=== PATIENT | male | born 1935 | race Caucasian/White ===

== ENCOUNTER → 2017-05-27 08:05 | Day surgery (SDC) | payer MEDICARE, OTHER ==
[~2017-05-27 08:05] MED LIST: Buffered Lidocaine 0.9% SYRIN* 5 ML/SYR SYRINGE INTRADERM ONE; Buffered Lidocaine 0.9% SYRIN* 5 ML/SYR SYRINGE ONE; Famotidine IV* 10 MG/ML 2 ML (20 mg) IV ONE; Famotidine IV* 10 MG/ML 2 ML (20 mg) ONE; ceFAZolin 2 GM PREMIX (*) 50 ML IVPB ONE
[2017-05-27 08:38] VITALS: BP 171/81
== END | disposition home or self-care (01) ==
LOC: OR 08:05 → SP 08:05
PROVIDERS: ATTEND Neurological Surgery
DX: L03.114 Cellulitis of left upper limb (principal); Z53.8 Procedure and treatment not carried out for other reasons
CPT/HCPCS: J0690

== ENCOUNTER 2017-06-17 08:07 | Inpatient (IN) | payer MEDICARE, OTHER ==
[~2017-06-17 08:07] MED LIST changes: +Bacitracin IV* 50,000 UNITS INJ ONE; -Buffered Lidocaine 0.9% SYRIN* 5 ML/SYR SYRINGE ONE; -Famotidine IV* 10 MG/ML 2 ML (20 mg) IV ONE; -Famotidine IV* 10 MG/ML 2 ML (20 mg) ONE; +Lidocaine 1% MPF wEPI 200,000* 30 ML SDV ONE; +Sodium Citrate/Citric Acid* 15 ML UDC PO ONE; +Thrombin 5,000 UNITS* 1 APPLIC KIT - topical use - TOPICAL ONE; -ceFAZolin 2 GM PREMIX (*) 50 ML IVPB ONE
[2017-06-17] MEDS ORDERED: Buffered Lidocaine 0.9% SYRIN* 5 ML/SYR SYRINGE ONE (08:27)
[2017-06-17] MEDS ORDERED: Sodium Citrate/Citric Acid* 15 ML UDC ONE (08:27)
[2017-06-17] MEDS ORDERED: Clindamycin 900 MG IVPREMIX(* 900 MG/50 ML SDV IV ONE (08:27)
[2017-06-17] MEDS ORDERED: fentaNYL* 50 MCG/ML 2 ML VIAL (100 MCG VIAL) ONE ×2 (09:36→12:18)
[2017-06-17] MEDS ORDERED: Propofol* 10 MG/ML 20 ML BTL IV PUSH ONE (09:36)
[2017-06-17] MEDS ORDERED: Cisatracurium* 2 MG/ML MDV 5 ML ONE (09:36)
[2017-06-17] MEDS ORDERED: Lidocaine 2% PF * 5 ML VIAL ONE (09:36)
[2017-06-17] MEDS ORDERED: Ondansetron INJ* 2 MG/ML VIAL IV PRN ×2 (10:35→11:12)
[2017-06-17] MEDS ORDERED: fentaNYL* 50 MCG/ML 2 ML VIAL (100 MCG VIAL) IV PRN (10:35)
[2017-06-17] MEDS ORDERED: Thrombin 5,000 UNITS* 1 APPLIC KIT - topical use - TOPICAL ONE (10:51)
[2017-06-17] MEDS ORDERED: Neostigmine Methylsulfate* 2 MG/2 ML SYRINGE ONE (11:08)
[2017-06-17] MEDS ORDERED: Glycopyrrolate IV* 0.2 MG/ML 1 ML VIAL ONE (11:08)
[2017-06-17] MEDS ORDERED: HYDROcodone/ACETAMIN 5-325 MG* 1 TAB PO PRN (11:12)
[2017-06-17] MEDS ORDERED: Labetalol IV* 5 MG/ML 20 ML VIAL ONE (12:18)
--- NOTE | 2017-06-17 14:12 | RAD ---
INDICATION: Chronic back pain COMPARISON: None. TECHNIQUE: A single intraoperative crosstable lateral view was obtained. FINDINGS: A single crosstable lateral view depicts tissue retractors overlying the lumbar spine with a surgical device pointed at the L4/L5 intervertebral disc level. IMPRESSION: As above
[2017-06-17] MEDS: Labetalol IV* 5 MG/ML 20 ML VIAL IV PUSH ONE ×2 (17:52→19:35)
[2017-06-17] MEDS: Insulin LISPRO* 1 UNITS UNIT SUBCUT SCH ×2 (18:17→21:32)
[2017-06-17] MEDS: Cyanocobalamin TAB* 500 MCG PO SCH (18:17)
[2017-06-17] MEDS ORDERED: Lisinopril TAB* 5 MG PO ONE ×2 (19:03→23:00)
[2017-06-17] MEDS ORDERED: Metoprolol Succinate XL TAB* 25 MG PO ONE ×2 (19:03→23:00)
[2017-06-17] MEDS ORDERED: Labetalol IV* 5 MG/ML 20 ML VIAL IV PUSH PRN (19:11)
[2017-06-17] MEDS: Memantine TAB* 10 MG PO SCH (21:09)
[2017-06-17] MEDS: Acetaminophen TAB* 325 MG PO PRN (21:09)
[2017-06-18] MEDS: Levothyroxine TAB* 25 MCG TAB PO SCH (05:31)
[2017-06-18] MEDS: Acetaminophen TAB* 325 MG PO PRN ×2 (05:31→18:32)
--- NOTE | 2017-06-18 07:44 | PN ---
Progress Note - Progress Note Date of Service: 06/18/17 SOAP: Subjective: []Confused this AM No real pain complaints Moderate drain output Objective: []Neuro intact Confused slightly Drain output moderate Assessment: [] Slow post op progress Plan: []Will ask hospitalist to assist Will need further monitoring
[2017-06-18] MEDS ORDERED: FLUDROCORTISONE 0.1 MG PO SCH (09:00)
[2017-06-18] MEDS: Insulin LISPRO* 1 UNITS UNIT SUBCUT SCH ×4 (09:57→21:33)
[2017-06-18] MEDS: Memantine TAB* 10 MG PO SCH ×2 (09:59→21:32)
[2017-06-18] MEDS: Metoprolol Succinate XL TAB* 25 MG PO SCH (09:59)
[2017-06-18] MEDS: Lisinopril TAB* 5 MG PO SCH (09:59)
[2017-06-18] MEDS: Atorvastatin* 40 MG TAB PO SCH (09:59)
[2017-06-18] MEDS: Aspirin EC Low Dose* 81 MG TAB.EC PO SCH (09:59)
[2017-06-18] MEDS ORDERED: HYDROcodone/ACETAMIN 5-325 MG* 1 TAB PO PRN (11:39)
[2017-06-18 12:47] LABS: Hematocrit 36 % (42-52); Hemoglobin 12.4 g/dl (14.0-18.0); Mean Corpuscular HGB Conc 35 g/dl (31-36); Mean Corpuscular Hemoglobin 35 pg (27-31); Mean Corpuscular Volume 99 fL (80-94); Red Blood Count 3.61 10^6/ul (4.0-5.4); Red Cell Distribution Width 14 % (10.5-15); White Blood Count 8.9 10^3/ul (3.5-10.8)
[2017-06-18 12:54] LABS: Add Diff/Slide Review? Slide Review Added; Comments Flag Yes
[2017-06-18 13:01] LABS: BUN/Creatinine Ratio 18.8 (8-20); Calcium 8.8 mg/dL (8.6-10.3); EGFR African American 90.7 (>60); EGFR Non-African American 70.5 (>60); Magnesium 1.4 mg/dL (1.9-2.7); Potassium 3.2 mmol/L (3.5-5.0)
[2017-06-18 13:17] LABS: Mean Platelet Volume 9 um3 (7.4-10.4)
[2017-06-18] MEDS ORDERED: Potassium Chlor TAB* 20 MEQ TAB.ER PO ONE (14:41)
--- NOTE | 2017-06-18 15:16 | CONS ---
CC: Kristine Baptiste; Dr. Nobles * CONSULTATION REPORT: DATE OF CONSULT: 06/18/17 PRIMARY CARE PROVIDER: Kristine Baptiste. ATTENDING PHYSICIAN WHILE IN THE HOSPITAL: Rich Squires MD (report dictated by Sebastián Abdalla NP) REQUESTING PHYSICIAN FOR CONSULT: Dr. Nobles. REASON FOR MEDICAL CONSULTATION: 1. Evaluation of delirium postoperatively. 2. Medical management of comorbid medical conditions. HISTORY OF PRESENTING ILLNESS: Mr. Antony Montez is an 82-year-old male patient who has had chronic back issues for some time. He has been having lower back discomfort. He had been taking gabapentin and Celebrex for the pain for sometime, failing conservative therapy. He was getting epidural injections , which were causing elevated blood sugars for his diabetes. He sought care with Dr. Nobles, who has felt that he would benefit from an L4-5 and L5-S1 laminectomy, which he underwent yesterday. Initially doing well postoperatively , however, this morning was found to be confused and because of this we were asked to evaluate in consult. The patient does carry a history of diabetes, CAD , neuropathy, CHF, hypertension, hyperlipidemia. He has a history of syncope, BPH, arthritis, spinal stenosis, hypothyroidism, history of TIA, and a history of mild dementia. He was evaluated in the postoperative setting. He does state that he had some issue which he remembers being confused this morning. He denies having any chest pain or shortness of breath. He does states that his back pain is well controlled. He denies any numbness, tingling in the lower extremities. Denies any weakness. Denies having any abdominal discomfort. He denies feeling nauseated. He states he has not had any weakness to one side, no facial drooping, and his states that speech has been the same and actually she feels that his mentation is returning to his baseline. Because of the confusion this morning, his complex medical issue, we were asked to evaluate in consult. PAST MEDICAL HISTORY: Significant for, 1. Diabetes. 2. CAD. 3. Neuropathy. 4. CHF, which is combined diastolic and systolic, although the last EF was 55% preoperatively. He has a history of hypertension, hyperlipidemia, syncope, which was felt to be orthostatic. 5. BPH. 6. Arthritis. 7. Spinal stenosis. 8. Hypothyroidism. 9. TIA. 10. Dementia. PAST SURGICAL HISTORY: 1. He had an appendectomy. 2. Cataract extraction. 3. Bilateral total knee replacement. 4. Right rotator cuff repair. 5. He has had laminectomy done yesterday at L4-L5, L5-S1 with Dr. Nobles. HOME MEDICATIONS: According to the list that was provided include, 1. Celebrex 100 mg p.o. b.i.d. 2. Multivitamin 1 tablet p.o. q.p.m. 3. Toprol XL 25 mg daily. 4. Metformin 750 mg p.o. b.i.d. 5. Namenda 10 mg p.o. b.i.d. 6. Lisinopril 2.5 mg daily. 7. Synthroid 25 mcg daily. 8. Ipratropium bromide 2 sprays both nares b.i.d. as needed. 9. Florinef 1 tablet p.o. daily. 10. B12 500 mcg p.o. daily. 11. Lipitor 40 mg daily. 12. Aspirin 81 mg daily. 13. Tylenol extra strength 500 mg p.o. b.i.d. ALLERGIES TO MEDICATIONS: NEOSPORIN and ARICEPT. FAMILY HISTORY: Mother had a history of dementia as did his father and his father had a history of CHF. SOCIAL HISTORY: He is a former smoker. He quit over 30 years ago. He does not drink alcohol. His surrogate decision maker is his . REVIEW OF SYSTEMS: There is no documented fever. He denied having any significant weight change. There is no double vision. There is no ear discharge. He denies having any rhinorrhea. No sore throat. No thyroid enlargement. Denies having any chest pain. There is no orthopnea or nocturnal dyspnea. There is no abdominal pain. No nausea, no vomiting. No dysuria, no frequency. There is no seizure, no loss of consciousness. No pruritus and no skin ulceration. Review of 14 systems completed, all others negative. PHYSICAL EXAM: Reveals vital signs, blood pressure 134/60 with the pulse of 50 , respirations 16, his O2 sat 96%, and temperature was 98.4. General: At this time, Mr. Montez is an 82-year-old male patient. He is sitting in the hospital bed. He does not appear to be in any acute distress. He is awake and he is alert. He is well nourished, well developed. HEENT: Head is atraumatic. Eyes: Sclerae anicteric, not pale. Neck: Supple. Throat: Oral mucosa appears to be moist. No oropharyngeal erythema. Heart: Sounds S1 and S2. Regular rate and rhythm. No murmurs, rubs or gallops. Lungs: Clear to auscultation bilaterally. No wheezes, rales or rhonchi. Abdomen: Soft, flat, nontender. Bowel sounds were present. Extremities: Pulses were 2+ throughout. He has 5/5 strength in all 4 extremities. No peripheral edema. Neurologic: He is awake, he is alert. He does have a little trouble with time. He actually looked at the calendar and said it was June, but he knows he is in the hospital. He knows that he had surgery. He knows Dr. Nobles performed the surgery. Speech is clear. His tongue is midline. Deputy Assessor are equal. Finger -to-nose intact bilaterally. [id number] intact bilaterally. No gross focal deficits. Cranial nerves II through XII are intact. Skin: Intact midline incision to his lumbar spine, which was covered with an ABD. It is clean, dry and intact. DIAGNOSTIC STUDIES/LAB DATA: Preoperatively, WBC 7.9, RBC of 3.90, hemoglobin 13.4, hematocrit 39, platelet count 188. Sodium 140, potassium 3.9, chloride 103, bicarb 30, BUN 18, creatinine 0.91. He had a preop evaluation well with his primary. He has a nuclear stress that was done in 2015, which showed a moderate size fixed defect involving the basal, mid and apical inferior and basal inferior lateral camara and he had an echo in 2015, EF of 55%. Old medical records were reviewed. ASSESSMENT AND PLAN: Mr. Montez is an 82-year-old male patient, coming into neurosurgical services for an elective laminectomy. Postoperatively, he was noted to have some confusion. We were asked to evaluate in consult. Our recommendations at this point are: 1. Lumbar stenosis, status post L4-5, L5-S1 laminectomy, defer the management to Dr. Nobles and his team. 2. Diabetes. I would recommend continuing the sliding scale. 3. Dementia with postoperative delirium and I suspect that the patient is experiencing postoperative delirium, which should be self-limiting, however, I will check a CBC, BMP and UA to make sure there is not any other underlying cause. Should he worsen again, I would consider getting CT imaging of his brain , but this is quite nonfocal, he seems to be returning to his baseline, I will monitor and I will try to avoid narcotics. I have cut back his [place] from 2 tablets every 4 hours to 1 tablet every 6 hours and I have encouraged him to take Tylenol only if this is controlling his pain and to avoid agents that would again cause confusion. 4. Coronary artery disease, continue his beta-kike, statin and aspirin. 5. Neuropathy, continue meds prescribed. 6. History of congestive heart failure, we will follow this. He does not appear to be in failure currently. 7. Hypertension, immediately postoperatively he was rather hypertensive in 170s to 180s. He was restarted on his meds, his blood pressure today are in the 130s. 8. History of syncope. I would recommend continuing his Florinef as he does have orthostatic hypotension. This may raise his blood pressure, and we will follow it. 9. Benign prostatic hypertrophy. Continue his meds as prescribed. 10. Arthritis, he can follow up with his primary. 11. Hypothyroidism. Continue Synthroid. 12. History of transient ischemic attack. Continue with secondary prevention with aspirin and statin. 13. DVT prophylaxis, as per the primary team. 14. Code status. He wished to be a full code. 15. Fluids, electrolytes and nutrition. I would recommend a consistent carb diet. TIME SPENT: Time spent on consult 60 minutes, greater than half the time spent [id number] with the patient obtaining my history and physical, the other half the time spent going over the plan of care with the patient and implementing the plan of care. I did discuss this plan of care with my attending, Dr. Squires; she is in agreement. SEBASTIÁN ABDALLA, RAMILA [id number]/[facility] #: [id number] YFN
[2017-06-18 17:10] LABS: Urine Bilirubin Negative (Negative); Urine Glucose Negative (Negative); Urine Nitrite Negative (Negative)
[2017-06-18] MEDS: Cyanocobalamin TAB* 500 MCG PO SCH (18:32)
--- NOTE | 2017-06-18 23:31 | OP ---
DATE OF OPERATION: 06/17/17 - ROOM #337 DATE OF : 33 SURGEON: Chente Nobles MD. EXCEPTIONAL CHILDREN'S TEACHER: JUAN A Moore. ANESTHESIOLOGIST: Scout Cuevas DO ANESTHESIA: General. PRE-OP DIAGNOSIS: Lumbar spinal stenosis at L4-5, L5-S1. POST-OP DIAGNOSIS: Lumbar spinal stenosis at L4-5, L5-S1. OPERATIVE PROCEDURE: Decompressive lumbar laminectomy, L4-5, L5-S1. DESCRIPTION OF PROCEDURE: After satisfactory general anesthesia was obtained, the patient was placed on the operating table in a prone position with the chest supported on the Nakul frame, the back slightly flexed. The lumbar region was then clipped, prepped, and draped in a sterile manner for lumbar laminectomy, and the skin incision outlined from L4 to the sacrum. This incision was infiltrated with 1% Xylocaine with epinephrine, after which it was turned down sharply to the level of the lumbar fascia. The fascia was divided along the spinous processes from L4 to the sacrum, and the paraspinal musculature was stripped away from these posterior elements using the periosteal elevator and monopolar cautery. An intraoperative x-ray was obtained verifying proper interspace localization, after which a decompression was initially carried out at the L4-5 level by removing the spinous processes of L4 and L5 with a combination of the Natalie data transcriber and Le[place]ell rongeur. The inferior aspect of the L4 lamina and medial aspect of the facet complex was then thinned out with Midas Eleazar drill and a Kerrison was used to perform a decompression. This was carried superiorly until the attachment of the ligamentum flavum was taken down. The pathology at this level was noted to be marked ligamentum thickening as well as bony facet hypertrophy. The dissection and decompression was carried inferiorly until the L5 nerve roots were noted to be free in their course and there was no longer dural compromise. Attention was then directed to the L5-S1 level where similar findings were noted. The changes at the L5-S1 level were not as severe as L4-5. At the conclusion of the L5-S1 decompression, both S1 nerve roots were noted to be free in their course. Hemostasis was obtained with temporary Gelfoam and after assuring adequate hemostasis, Gelfoam was placed over the laminectomy defects. A Baltazar drain was then placed in the epidural space and tunneled out toward the left side. The fascia was then reapproximated with 0 Vicryl suture, the subcutaneous tissue was closed with 3-0 Vicryl suture, and the skin closed with skin clips. The estimated blood loss was 100 cc, and the final sponge, padding , and needle counts were correct. The patient was taken to the recovery room, extubated, and in stable condition. [id number]/[facility] #: [id number] MTDD
[2017-06-19] MEDS: Acetaminophen TAB* 325 MG PO PRN (01:51)
[2017-06-19] MEDS: Levothyroxine TAB* 25 MCG TAB PO SCH (06:22)
--- NOTE | 2017-06-19 08:54 | PN ---
Progress Note - Progress Note Date of Service: 06/19/17 SOAP: Subjective: [S/p decompressive lumbar laminectomy L4-5, L5-S1, POD#2. Patient feeling well this morning and ambulating the payan with PT, using walker. Pain well controlled, no narcotics. Confusion is improving although had episode of disorientation last night. ] Objective: [Vital Signs: Temp Pulse Resp BP Pulse Ox 98.4 F 67 20 147/67 100 06/19/17 07:49 06/19/17 07:49 06/19/17 08:00 06/19/17 07:49 06/19/17 07:49 General: Alert and oriented to person and place. Neuro: Motor and sensory intact. Extremities: Full ROM Incision: Intact with gabbie. Baltazar drain in place. Baltazar drain output 06/17/17 06/17/17 06/17/17 11:25 14:41 19:00 Output, NAVIN #1 30 60 80 06/18/17 06/18/17 06/18/17 00:31 03:04 07:00 Output, NAVIN #1 50 30 40 06/18/17 06/18/17 06/18/17 14:00 19:06 21:54 Output, NAVIN #1 30 30 15 06/18/17 06/19/17 06/19/17 23:28 03:38 08:51 Output, NAVIN #1 10 15 15 ] Assessment: [Satisfactory post-op course. Mild confusion, possibly related to anesthesia.] Plan: [1. Continue to work with PT. 2. Discussed close safety monitoring with nursing staff concerning the patient' s confusion. 3. Possible discharge home tomorrow.]
[2017-06-19] MEDS: Aspirin EC Low Dose* 81 MG TAB.EC PO SCH (09:11)
[2017-06-19] MEDS: Atorvastatin* 40 MG TAB PO SCH (09:11)
[2017-06-19] MEDS: Metoprolol Succinate XL TAB* 25 MG PO SCH (09:11)
[2017-06-19] MEDS: Fludrocortisone Acetate TAB* 0.1 MG PO SCH (09:11)
[2017-06-19] MEDS: Lisinopril TAB* 5 MG PO SCH (09:11)
[2017-06-19] MEDS: Memantine TAB* 10 MG PO SCH ×2 (09:11→21:20)
[2017-06-19] MEDS: Insulin LISPRO* 1 UNITS UNIT SUBCUT SCH ×4 (09:12→21:20)
--- NOTE | 2017-06-19 09:36 | PN ---
Subjective Date of Service: 06/19/17 Interval History: Patient seen and examined at bedside. Patient had some confusion overnight but this morning is cooperative and oriented. Patient denies pain and ambulated in hallway with PT. Family History: Unchanged from Admission Social History: Unchanged from Admission Past Medical History: Unchanged from Admission Objective Active Medications: Acetaminophen (Tylenol Tab*) 650 mg PO Q4H PRN Hydrocodone Bitart/Acetaminophen ([place] 5-325 Tab*) 1 tab PO Q6H PRN Aspirin (Aspirin Ec Low Dose*) 81 mg PO QAM [facility]ER[facility] Atorvastatin Calcium (Lipitor*) 40 mg PO QAM [facility]ERA Cyanocobalamin (Vitamin B12 Tab*) 500 mcg PO QPM [facility]ERA Fludrocortisone Acetate (Florinef Tab*) 0.1 mg PO QAM SAMEERA Hydralazine HCl (Apresoline Iv*) 10 mg IV SLOW PU Q4H PRN Lactated Ringer's (Lactated Ringers 1000 Ml Bag*) 1,000 mls @ 75 mls/hr IV PER RATE [facility] Insulin Human Lispro (Humalog*) 0 units SUBCUT ACHS SAMEERA Labetalol HCl (Trandate Iv*) 20 mg IV PUSH Q4H PRN Levothyroxine Sodium (Synthroid Tab*) 25 mcg PO DAILY@0600 [facility]ER[facility] Lisinopril (Prinivil Tab*) 2.5 mg PO QAM SAMEERA Memantine (Namenda Tab*) 10 mg PO BID SAMEERA Metoprolol Succinate (Toprol Xl Tab*) 25 mg PO QAM SAMEERA Ondansetron HCl (Zofran Inj*) 4 mg IV Q6H PRN 06/19/17 06/19/17 06/19/17 03:33 07:49 08:00 Temperature 98.8 F 98.4 F Pulse Rate 67 67 Respiratory 16 16 20 Rate Blood Pressure 125/61 147/67 (mmHg) O2 Sat by Pulse 98 100 Oximetry Appearance: sitting up in bed, NAD Eyes: No Scleral Icterus, PERRLA Ears/Nose/Mouth/Throat: NL Teeth, Lips, Gums Neck: NL Appearance and Movements; NL JVP Respiratory: Symmetrical Chest Expansion and Respiratory Effort, Clear to Auscultation Cardiovascular: NL Sounds; No Murmurs; No JVD, RRR Abdominal: NL Sounds; No Tenderness; No Distention Extremities: No Edema Skin: - - incision on back C/D/I Neurological: NL Muscle Strength and Tone, - - oriented to self and place. Result Diagrams: 06/18/17 12:26 06/18/17 12:26 Assess/Plan/Problems-Billing Patient is an 82 y/o M w/ PMH of CAD, DM, CHF, HTN, HLD, neuropathy who underwent an elective laminectomy on 06/17/2017. Hospitalists were consulted for post-operative delirium. - Patient Problems (1) Postoperative delirium Comment: Most likely secondary to anesthesia, narcotics and underlying dementia. Continue to use Tylenol for pain. WBC normal and UA negative. Continue frequent reorientation as needed. (2) S/P laminectomy Comment: Management per neurosurgery. PT/OT. Pain control with Tylenol and [place] sparingly. (3) CAD (coronary artery disease) Comment: Continue beta-kike, statin and ASA. (4) HTN (hypertension) Comment: Controlled. Continue Lisinopril and Florinef for Orthostatic hypotnesion. (5) Diabetes Comment: Sugars controlled with Lispro sliding scale. (6) HLD (hyperlipidemia) Comment: Continue statin. (7) DVT prophylaxis Comment: SCDs only. (8) Full code status Status and Disposition: Inpatient s/p lumbar laminectomy. Dispo per Neurosurgery.
[2017-06-19] MEDS: Potassium Chlor TAB* 20 MEQ TAB.ER PO SCH ×2 (10:28→14:41)
[2017-06-19] MEDS: Polyethylene Glycol 3350* 17 GM PACKET PO SCH (14:41)
[2017-06-19] MEDS: Cyanocobalamin TAB* 500 MCG PO SCH (18:22)
[2017-06-19] MEDS: Docusate CAP* 100 MG PO SCH (21:20)
[2017-06-19] MEDS: Senna TAB PO SCH (21:20)
[2017-06-19] MEDS: hydrALAZINE IV* 20 MG/ML VIAL IV SLOW PU PRN (22:31)
[2017-06-20] MEDS: Levothyroxine TAB* 25 MCG TAB PO SCH (05:29)
[2017-06-20] MEDS: Acetaminophen TAB* 325 MG PO PRN ×2 (06:53→18:33)
[2017-06-20 07:32] LABS: BUN/Creatinine Ratio 22.7 (8-20); Calcium 8.9 mg/dL (8.6-10.3); EGFR African American 106.4 (>60); EGFR Non-African American 82.7 (>60); Potassium 3.6 mmol/L (3.5-5.0)
--- NOTE | 2017-06-20 07:44 | PN ---
Progress Note - Progress Note Date of Service: 06/20/17 SOAP: Subjective: []POD # 3 Remains confused No complaints of pain Still with significant drain output Objective: []30 cc out of drain this AM Neuro intact Remains confused Assessment: []Very poor progress Plan: []Will check CT of brain May benefit from rehab
--- NOTE | 2017-06-20 08:37 | PN ---
Subjective Date of Service: 06/20/17 Interval History: Patient seen and examined at bedside. Patient with continued agitation and confusion overnight. Patient getting out of bed and ambulating. Family History: Unchanged from Admission Social History: Unchanged from Admission Past Medical History: Unchanged from Admission Objective Active Medications: Acetaminophen (Tylenol Tab*) 650 mg PO Q4H PRN Hydrocodone Bitart/Acetaminophen (Monitor 5-325 Tab*) 1 tab PO Q6H PRN Aspirin (Aspirin Ec Low Dose*) 81 mg PO QAM [facility] Atorvastatin Calcium (Lipitor*) 40 mg PO QAM SAMEERA Cyanocobalamin (Vitamin B12 Tab*) 500 mcg PO QPM SAMEERA Docusate Sodium (Colace Cap*) 100 mg PO BID SAMEERA Fludrocortisone Acetate (Florinef Tab*) 0.1 mg PO QAM SAMEERA Hydralazine HCl (Apresoline Iv*) 10 mg IV SLOW PU Q4H PRN Lactated Ringer's (Lactated Ringers 1000 Ml Bag*) 1,000 mls @ 75 mls/hr IV PER RATE [facility] Insulin Human Lispro (Humalog*) 0 units SUBCUT ACHS SAMEERA Labetalol HCl (Trandate Iv*) 20 mg IV PUSH Q4H PRN Levothyroxine Sodium (Synthroid Tab*) 25 mcg PO DAILY@0600 [facility] Lisinopril (Prinivil Tab*) 2.5 mg PO QAM [facility] Memantine (Namenda Tab*) 10 mg PO BID [facility] Metoprolol Succinate (Toprol Xl Tab*) 25 mg PO QAM [facility] Ondansetron HCl (Zofran Inj*) 4 mg IV Q6H PRN Polyethylene Glycol/Electrolytes (Miralax*) 17 gm PO DAILY [facility] Senna (Senokot Tab*) 2 tab PO BEDTIME [facility] 06/20/17 06/20/17 07:32 08:22 Temperature 98.5 F Pulse Rate 71 Respiratory 17 Rate Blood Pressure 158/75 (mmHg) O2 Sat by Pulse 98 98 Oximetry Oxygen Devices in Use Now: None Appearance: sitting up bed, NAD Eyes: No Scleral Icterus, PERRLA Ears/Nose/Mouth/Throat: NL Teeth, Lips, Gums Neck: NL Appearance and Movements; NL JVP Respiratory: Symmetrical Chest Expansion and Respiratory Effort, Clear to Auscultation Cardiovascular: NL Sounds; No Murmurs; No JVD, RRR Abdominal: NL Sounds; No Tenderness; No Distention Extremities: No Edema Skin: No Rash or Ulcers, - - NAVIN still in place; back dressing C/D/I Neurological: NL Muscle Strength and Tone, - - AO to self and place Result Diagrams: 06/18/17 12:26 06/20/17 06:41 Microbiology and Other Data: Microbiology 06/18/17 16:50 Urine Culture - Final Urine No Growth (<1,000 CFU/mL) Assess/Plan/Problems-Billing Patient is an 82 y/o M w/ PMH of CAD, DM, CHF, HTN, HLD, neuropathy who underwent an elective laminectomy on 06/17/2017. Hospitalists were consulted for post-operative delirium. - Patient Problems (1) Postoperative delirium Comment: Most likely secondary to anesthesia, narcotics and underlying dementia. Agitation seems to be worse at night. Would try low dose seroquel to help with delirium at night. CT head pending. (2) S/P laminectomy Comment: Management per neurosurgery. PT/OT. Pain control with Tylenol and Monitor sparingly. (3) CAD (coronary artery disease) Comment: Continue beta-kike, statin and ASA. (4) HTN (hypertension) Comment: Controlled. Continue Lisinopril and Florinef for Orthostatic hypotnesion. (5) Diabetes Comment: Sugars controlled with Lispro sliding scale. (6) HLD (hyperlipidemia) Comment: Continue statin. (7) DVT prophylaxis Comment: SCDs only. (8) Full code status Status and Disposition: Inpatient s/p lumbar laminectomy. Dispo per Neurosurgery.
--- NOTE | 2017-06-20 09:19 | RAD ---
Indication: Confusion. Postop from back surgery. Comparison: No relevant prior exams available on the [facility] PACS for comparison. Technique: Noncontrast CT vertex of skull through foramen magnum. Report: Mild prominence of the cerebral sulci and ventricles. Normal variant persistent cavum septum pellucidum. Negative for euceda matter white matter obscuration, intra or extra-axial hemorrhage, or mass effect. Decreased density in the periventricular and subcortical white matter while non-specific is most likely due to chronic microangiopathy. Atherosclerotic calcification at the intracranial internal carotid arteries and distal vertebral arteries. Unremarkable orbital contents. No suspicious calvarial or skull base lesion evident. Clear visualized paranasal sinuses and mastoid air spaces. Unremarkable scalp. IMPRESSION: 1. No acute intracranial process evident. 2. Mild atrophy and stigmata of chronic small vessel ischemic disease.
[2017-06-20] MEDS: Polyethylene Glycol 3350* 17 GM PACKET PO SCH (10:05)
[2017-06-20] MEDS: Docusate CAP* 100 MG PO SCH ×2 (10:06→19:33)
[2017-06-20] MEDS: Atorvastatin* 40 MG TAB PO SCH (10:06)
[2017-06-20] MEDS: Fludrocortisone Acetate TAB* 0.1 MG PO SCH (10:06)
[2017-06-20] MEDS: Lisinopril TAB* 5 MG PO SCH (10:07)
[2017-06-20] MEDS: Memantine TAB* 10 MG PO SCH ×2 (10:07→19:33)
[2017-06-20] MEDS: Aspirin EC Low Dose* 81 MG TAB.EC PO SCH (10:07)
[2017-06-20] MEDS: Metoprolol Succinate XL TAB* 25 MG PO SCH (10:07)
[2017-06-20] MEDS: Insulin LISPRO* 1 UNITS UNIT SUBCUT SCH (10:08)
[2017-06-20] MEDS: Cyanocobalamin TAB* 500 MCG PO SCH (18:33)
[2017-06-20] MEDS: Senna TAB PO SCH (19:33)
[2017-06-20] MEDS: QUEtiapine TAB* 25 MG PO SCH (19:34)
[2017-06-20] MEDS: hydrALAZINE IV* 20 MG/ML VIAL IV SLOW PU PRN (23:51)
[2017-06-21] MEDS: Levothyroxine TAB* 25 MCG TAB PO SCH (06:34)
[2017-06-21] MEDS: Polyethylene Glycol 3350* 17 GM PACKET PO SCH (10:32)
[2017-06-21] MEDS: Atorvastatin* 40 MG TAB PO SCH (10:33)
[2017-06-21] MEDS: Docusate CAP* 100 MG PO SCH ×2 (10:33→19:48)
[2017-06-21] MEDS: Memantine TAB* 10 MG PO SCH ×2 (10:33→19:48)
[2017-06-21] MEDS: Metoprolol Succinate XL TAB* 25 MG PO SCH (10:34)
[2017-06-21] MEDS: Aspirin EC Low Dose* 81 MG TAB.EC PO SCH (10:34)
[2017-06-21] MEDS: Lisinopril TAB* 5 MG PO SCH (10:34)
[2017-06-21] MEDS: Fludrocortisone Acetate TAB* 0.1 MG PO SCH (10:35)
[2017-06-21] MEDS: Acetaminophen TAB* 325 MG PO PRN (10:35)
[2017-06-21] MEDS: Insulin LISPRO* 1 UNITS UNIT SUBCUT SCH (10:36)
--- NOTE | 2017-06-21 13:09 | PN ---
Subjective Date of Service: 06/21/17 Interval History: Seen and examined with daughter at bedside Discussed events with nurses Agitated and confused before bedtime yesterday but much less so compared to night prior Took seroquel and had improved sleep No complaints today Drain out today by Dr. Nobles Family History: Unchanged from Admission Social History: Unchanged from Admission Past Medical History: Unchanged from Admission Objective Active Medications: Acetaminophen (Tylenol Tab*) 650 mg PO Q4H PRN PRN Reason: PAIN Last Admin: 06/21/17 10:35 Dose: 650 mg Hydrocodone Bitart/Acetaminophen ([place] 5-325 Tab*) 1 tab PO Q6H PRN PRN Reason: MARKED PAIN Aspirin (A[facility]in Ec Low Dose*) [facility] Last Admin: 06/21/17 10:34 Dose: 81 mg Atorvastatin Calcium (Lipitor*) 40 mg PO QAM [facility] Last Admin: 06/21/17 10:33 Dose: 40 mg Cyanocobalamin (Vitamin B12 Tab*) 500 mcg PO QPM [facility] Last Admin: 06/20/17 18:33 Dose: 500 mcg Docusate Sodium (Colace Cap*) 100 mg PO BID [facility] Last Admin: 06/21/17 10:33 Dose: 100 mg Fludrocortisone Acetate (Florinef Tab*) 0.[facility] [place] Last Admin: 06/21/17 10:35 Dose: 0.1 mg Hydralazine HCl (Apresoline Iv*) 10 mg IV SLOW PU Q4H PRN PRN Reason: BLOOD PRESSURE Last Admin: 06/20/17 23:51 Dose: 10 mg Insulin Human Lispro (Humalog*) 0 units SUBCUT DAILY [facility] PRN Reason: Protocol Last Admin: 06/21/17 10:36 Dose: 1 unit Labetalol HCl (Trandate Iv*) 20 mg IV PUSH Q4H PRN PRN Reason: BLOOD PRESSURE Levothyroxine Sodium (Synthroid Tab*) 25 mcg PO DAILY@0600 [facility] Last Admin: 06/21/17 06:34 Dose: 25 mcg Lisinopril (Prinivil Tab*) 2.5 mg PO QAM [facility] Last Admin: 06/21/17 10:34 Dose: 2.5 mg Memantine (Namenda Tab*) 10 mg PO BID [facility] Last Admin: 06/21/17 10:33 Dose: 10 mg Metoprolol Succinate (Toprol Xl Tab*) 25 mg PO QAM [facility] Last Admin: 06/21/17 10:34 Dose: 25 mg Ondansetron HCl (Zofran Inj*) 4 mg IV Q6H PRN PRN Reason: NAUSEA/VOMITING Polyethylene Glycol/Electrolytes (Miralax*) 17 gm PO DAILY [facility] Last Admin: 06/21/17 10:32 Dose: 17 gm Quetiapine Fumarate (Seroquel Tab*) 12.5 mg PO BEDTIME [facility] Last Admin: 06/20/17 19:34 Dose: 12.5 mg Senna (Senokot Tab*) 2 tab PO BEDTIME [facility] Last Admin: 06/20/17 19:33 Dose: 2 tab Vital Signs 06/20/17 06/20/17 06/20/17 15:33 19:58 20:00 Temperature 97.9 F 97.9 F Pulse Rate 75 64 Respiratory 16 20 16 Rate Blood Pressure 136/69 176/81 (mmHg) O2 Sat by Pulse 99 99 Oximetry 06/21/17 07:31 Temperature 98.4 F Pulse Rate 78 Respiratory 16 Rate Blood Pressure 148/70 (mmHg) O2 Sat by Pulse 96 Oximetry Oxygen Devices in Use Now: None Appearance: sitting in chair, NAD Eyes: No Scleral Icterus, PERRLA Ears/Nose/Mouth/Throat: NL Teeth, Lips, Gums, Clear Oropharnyx, Mucous Membranes Moist Neck: NL Appearance and Movements; NL JVP Respiratory: Symmetrical Chest Expansion and Respiratory Effort, Clear to Auscultation Cardiovascular: RRR Abdominal: NL Sounds; No Tenderness; No Distention, No Hepatosplenomegaly Extremities: No Edema Skin: No Rash or Ulcers Neurological: Alert and Oriented x 3, - - cn2-12 intact Result Diagrams: 06/18/17 12:26 06/20/17 06:41 Microbiology and Other Data: Microbiology 06/18/17 16:50 Urine Culture - Final Urine No Growth (<1,000 CFU/mL) Assess/Plan/Problems-Billing Patient is an 82 y/o M w/ PMH of CAD, DM, CHF, HTN, HLD, neuropathy who underwent an elective laminectomy on 06/17/2017. Hospitalists were consulted for post-operative delirium. - Patient Problems (1) Postoperative delirium Comment: Improved with time and low dose seroquel Would not discharge with continued seroquel (2) S/P laminectomy Comment: Management per neurosurgery. PT/OT. Pain control with Tylenol and [place] sparingly. (3) CAD (coronary artery disease) Comment: Continue beta-kike, statin and ASA. (4) Diabetes Comment: Sugars controlled with Lispro sliding scale. (5) HTN (hypertension) Comment: Controlled. Continue Lisinopril Florinef for Orthostatic hypotension. (6) DVT prophylaxis Comment: SCDs only. Status and Disposition: Will sign off Please call with additional questions [phone]
--- NOTE | 2017-06-21 16:43 | PN ---
Progress Note - Progress Note Date of Service: 06/21/17 SOAP: Subjective: []POD # 4 Better this AM Much more oriented,sitting up in chair Drainage decreased Objective: []Drain removed Neuro intact Oriented today with family in attendance Assessment: []Slowly improving Plan: []Ready for rehab when bed available
[2017-06-21] MEDS: Cyanocobalamin TAB* 500 MCG PO SCH (18:12)
[2017-06-21] MEDS: Senna TAB PO SCH (19:48)
[2017-06-21] MEDS: QUEtiapine TAB* 25 MG PO SCH (19:49)
[2017-06-22] MEDS: Levothyroxine TAB* 25 MCG TAB PO SCH (05:56)
[2017-06-22] MEDS: Insulin LISPRO* 1 UNITS UNIT SUBCUT SCH (09:20)
[2017-06-22] MEDS: Docusate CAP* 100 MG PO SCH ×2 (09:20→21:16)
[2017-06-22] MEDS: Acetaminophen TAB* 325 MG PO PRN (09:20)
[2017-06-22] MEDS: Fludrocortisone Acetate TAB* 0.1 MG PO SCH (09:20)
[2017-06-22] MEDS: Lisinopril TAB* 5 MG PO SCH (09:20)
[2017-06-22] MEDS: Atorvastatin* 40 MG TAB PO SCH (09:20)
[2017-06-22] MEDS: Polyethylene Glycol 3350* 17 GM PACKET PO SCH (09:20)
[2017-06-22] MEDS: Aspirin EC Low Dose* 81 MG TAB.EC PO SCH (09:20)
[2017-06-22] MEDS: Memantine TAB* 10 MG PO SCH ×2 (09:20→21:16)
[2017-06-22] MEDS: Metoprolol Succinate XL TAB* 25 MG PO SCH (09:20)
[2017-06-22] MEDS: Cyanocobalamin TAB* 500 MCG PO SCH (18:33)
[2017-06-22] MEDS: Senna TAB PO SCH (21:15)
[2017-06-22] MEDS: QUEtiapine TAB* 25 MG PO SCH (21:16)
[2017-06-23] MEDS: Levothyroxine TAB* 25 MCG TAB PO SCH (05:31)
--- NOTE | 2017-06-23 08:05 | PN ---
Progress Note - Progress Note Date of Service: 06/23/17 SOAP: Subjective: [S/p decompressive lumbar laminectomy L4-5 and L5-S1, POD #6. Feeling well this morning; denies headache, nausea and fever. He has been working with PT for ambulation and mobility, uses walker. He reports episodes of confusion throughout this admission. Denies low back and lower extremity pain. ] Objective: [ Vital Signs: Temp Pulse Resp BP Pulse Ox 99.5 F 65 16 139/67 99 06/22/17 20:45 06/22/17 20:45 06/22/17 20:45 06/22/17 20:45 06/22/17 20:45 General: Alert and oriented to person and place. Neuro: Motor and sensory intact. Extremities: Full ROM. Incision: Intact with gabbie, no infection. ] Assessment: [He is making slow progress post-operatively. Confusion is improved. Will benefit from rehab. ] Plan: [1. Discharge to rehab facility today if bed is available.]
[2017-06-23 08:37] VITALS: BP 153/68
[2017-06-23] MEDS: Fludrocortisone Acetate TAB* 0.1 MG PO SCH (08:49)
[2017-06-23] MEDS: Metoprolol Succinate XL TAB* 25 MG PO SCH (08:49)
[2017-06-23] MEDS: Atorvastatin* 40 MG TAB PO SCH (08:49)
[2017-06-23] MEDS: Lisinopril TAB* 5 MG PO SCH (08:49)
[2017-06-23] MEDS: Aspirin EC Low Dose* 81 MG TAB.EC PO SCH (08:49)
[2017-06-23] MEDS: Docusate CAP* 100 MG PO SCH (08:50)
[2017-06-23] MEDS: Polyethylene Glycol 3350* 17 GM PACKET PO SCH (08:50)
[2017-06-23] MEDS: Insulin LISPRO* 1 UNITS UNIT SUBCUT SCH (08:50)
[2017-06-23] MEDS: Memantine TAB* 10 MG PO SCH (08:50)
[2017-06-23] MEDS ORDERED: IPRATROPIUM BROMIDE BOTH NARES PRN (10:09)
--- NOTE | 2017-06-23 13:03 | DS ---
DISCHARGE SUMMARY: DATE OF ADMISSION: 06/17/17 DATE OF DISCHARGE: 06/23/17 ATTENDING PHYSICIAN: Dr. Chente Nobles * (DICTATED BY JUAN A CASAS) DISCHARGE DIAGNOSES: 1. Lumbar spinal stenosis. 2. Hypertension. 3. Hypothyroidism. 4. Heart disease. SPECIAL PROCEDURES: Decompressive lumbar laminectomy at L4-L5 and L5-S1. HOSPITAL COURSE: This 82-year-old male presented to the office with symptomatic lumbar stenosis for previous several years. He had failed to improve with conservative treatments and symptoms were worsening recently. Surgery was a decompressive lumbar laminectomy. It was discussed with the patient and the family. He followed up in office with Dr. Nobles for information and decided to proceed with surgery. On the day of admission, he was taken to the surgery where under general anesthesia, a decompressive lumbar laminectomy elective surgery was carried out. Post-operatively, he is feeling well. The preoperative pain was improved. However, he was experiencing some confusion, likely related to the general anesthesia. The confusion was worst over night and early in the morning, then seemed to improve throughout the day. The confusion persisted for two to three days postoperatively. During this time, he was also working with Physical Therapy and ambulating very well with assistance of walker. He continued to deny pain, nausea, headache. On the third postoperative day, as confusion continued, CT of the brain was obtained and was negative for bleed. Discussion with family has taken place and rehab facility was considered for continued postoperative care and rehabilitation. On the fourth postoperative day, the wound drain was discontinued. He was eating well. He was ambulating with assistance of walker and working with Physical Therapy. Denies urinary symptom. On the fifth postoperative day, he is discharged to [facility] for [facility]. FOLLOWUP: He will be seen in office on 07/02/17 for followup and staple removal. DISCHARGE MEDICATION: None. DISCHARGE INSTRUCTIONS: Information on wound care and activity level were provided and discussed with the patient. JUAN A CASAS [id number]/[facility] #: [id number] [facility]OSPITALMonica
== END 2017-06-23 14:05 | DRG 519 ==
LOC: OR 08:07 → SSU 13:05 → OBSVTOIN 06-18 07:48
PROVIDERS: ADMIT Neurological Surgery; ATTEND Neurological Surgery
PROC: 00NY0ZZ Release Lumbar Spinal Cord, Open Approach (ICD-10-PCS; principal; 2017-06-17 09:30)
DX: M48.061 Spinal stenosis, lumbar region without neurogenic claudication (principal); F05 Delirium due to known physiological condition; F03.90 Unspecified dementia, unspecified severity, without behavioral disturbance, psychotic disturbance, mood disturbance, and anxiety; I50.42 Chronic combined systolic (congestive) and diastolic (congestive) heart failure; I13.0 Hypertensive heart and chronic kidney disease with heart failure and stage 1 through stage 4 chronic kidney disease, or unspecified chronic kidney disease; E11.40 Type 2 diabetes mellitus with diabetic neuropathy, unspecified; I25.10 Atherosclerotic heart disease of native coronary artery without angina pectoris; E78.5 Hyperlipidemia, unspecified; I95.1 Orthostatic hypotension; M19.90 Unspecified osteoarthritis, unspecified site; E03.9 Hypothyroidism, unspecified; N40.0 Benign prostatic hyperplasia without lower urinary tract symptoms; Z96.653 Presence of artificial knee joint, bilateral; N18.3 Chronic kidney disease, stage 3 (moderate); E11.22 Type 2 diabetes mellitus with diabetic chronic kidney disease; M48.07 Spinal stenosis, lumbosacral region; Z88.1 Allergy status to other antibiotic agents; Z88.8 Allergy status to other drugs, medicaments and biological substances; Z87.891 Personal history of nicotine dependence; Z86.73 Personal history of transient ischemic attack (TIA), and cerebral infarction without residual deficits; Z98.49 Cataract extraction status, unspecified eye; Z82.49 Family history of ischemic heart disease and other diseases of the circulatory system; Z82.0 Family history of epilepsy and other diseases of the nervous system
CPT/HCPCS: 36415; 70450; 72100; 80048; 81003; 83735; 85025; 87086; 94760; A9270-GY; G0378; J0360; J2001; J2704; J3010; J3475

== ENCOUNTER 2017-10-23 17:59 | Emergency (ER) | payer MEDICARE, OTHER ==
[2017-10-23 19:14] LABS: ABS Basophils 0.1 10^3/ul (0-0.2); ABS Eosinophils 0.4 10^3/ul (0-0.6); ABS Lymphocytes 1.4 10^3/ul (1.0-4.8); ABS Monocytes 0.6 10^3/ul (0-0.8); ABS Neutrophils 3.3 10^3/ul (1.5-7.7); ABS Nucleated RBC 0 10^3/ul; Eosinophil % 6.2 % (0-6); Hematocrit 36 % (42-52); Hemoglobin 12.7 g/dl (14.0-18.0); Lymphocyte % 24.4 % (25-47); Mean Corpuscular HGB Conc 36 g/dl (31-36); Mean Corpuscular Hemoglobin 34 pg (27-31); Mean Corpuscular Volume 96 fL (80-94); Mean Platelet Volume 9 um3 (7.4-10.4); Nucleated Red Blood Cells % 0.1; Platelet Count 178 10^3/ul (150-450); Red Blood Count 3.73 10^6/ul (4.0-5.4); Red Cell Distribution Width 14 % (10.5-15); White Blood Count 5.7 10^3/ul (3.5-10.8)
[2017-10-23 19:27] LABS: EGFR Non-African American 81.6 (>60)
[2017-10-23] MEDS ORDERED: Potassium Chloride LIQUID* 20 MEQ PACKET PO ONE (19:28)
--- NOTE | 2017-10-23 19:41 | RAD ---
HISTORY: Fall, left arm pain COMPARISONS: None VIEWS: 4, Frontal, lateral, and oblique views of the left elbow FINDINGS: BONE DENSITY: Normal. BONES: There is no displaced fracture. JOINTS: There is no arthropathy. There is no posterior supracondylar fat pad to suggest a joint effusion. ALIGNMENT: There is no dislocation. SOFT TISSUES: Unremarkable. OTHER FINDINGS: None. IMPRESSION: NO ACUTE OSSEOUS INJURY. IF SYMPTOMS PERSIST, RECOMMEND REPEAT IMAGING.
--- NOTE | 2017-10-23 19:43 | RAD ---
HISTORY: Fall, head injury, memory loss COMPARISONS: June 20, 2017 TECHNIQUE: Multiple contiguous axial CT scans were obtained of the head without intravenous contrast. FINDINGS: HEMORRHAGE/INFARCT: There is no hemorrhage or acute infarct. MASSES/SHIFT: There is no mass or shift. EXTRA-AXIAL SPACES: There are no extra-axial fluid collections. SULCI AND VENTRICLES: There is diffuse enlargement of the sulci and ventricles. Incidentally noted is a cavum septum pellucidum et vergae. There is somewhat disproportionate enlargement of the ventricular system to the degree of sulcal enlargement. CEREBRUM: There is hypoattenuation of the periventricular and subcortical white matter. BRAINSTEM: There are no focal parenchymal abnormalities. CEREBELLUM: There are no focal parenchymal abnormalities. VESSELS: There is calcification of the cavernous segments of the internal carotid arteries bilaterally and of the distal vertebral arteries bilaterally. PARANASAL SINUSES: The paranasal sinuses are clear. ORBITS: The orbits are unremarkable. BONES AND SOFT TISSUE: No bone or soft tissue abnormalities are noted. OTHER: None IMPRESSION: 1. NO ACUTE INTRACRANIAL PATHOLOGY. 2. CHRONIC SMALL VESSEL ISCHEMIC CHANGES. 3. THERE IS DIFFUSE INVOLUTIONAL CHANGE WITH SOMEWHAT DISPROPORTIONATE ENLARGEMENT OF THE VENTRICULAR SYSTEM WITH SUSPECTED THE SULCI WHICH MAY INDICATE THE PRESENCE OF AN ADULT ONSET COMMUNICATING HYDROCEPHALUS, INCLUDING NORMAL PRESSURE HYDROCEPHALUS
--- NOTE | 2017-10-23 20:07 | ED ---
Dawson Suarez Jennifer, scribed for Dov Sheehan MD on 10/23/17 at 1842 . Head Injury - HPI Summary HPI Summary: The patient is an 82 year old male who presents to the ED after falling while walking today. The patients reports that they were walking when the patient went to kick a clump of snow, missed, and fell backwards on his butt and then hit the back of his head. The patient did not lose consciousness but he did not recall the event afterwards. He denies headache now but states that his head is unclear in that he thinks he knows everything but doesnt. The patient additionally complains of left elbow pain. - History Of Current Complaint Chief Complaint: EDHeadInjury Stated Complaint: FALL Hx Obtained From: Patient Mechanism Of Injury: Fall From A Standing Position Onset/Duration: Still Present Severity Currently: Mild Severity Initially: Mild Pain Intensity: 1 Pain Scale Used: 0-10 Numeric Location of Head Injury: Other: - back Associated Signs And Symptoms: Negative - Headache, Confusion, Memory Loss, Other: - Left elbow pain - Allergies/Home Medications Allergies/Adverse Reactions: Allergies Allergy/AdvReac Type Severity Reaction Status Date / Time MS Bacitracin Allergy increase Verified 06/17/17 08:43 [From Neosporin] swelling at site MS Neomycin [From Neosporin] Allergy increase Verified 06/17/17 08:43 swelling at site MS Polymyxin B Allergy increase Verified 06/17/17 08:43 [From Neosporin] swelling at site MS Donepezil [From Aricept] AdvReac Intermediate nightmares Verified 06/17/17 08 :43 PMH/Surg Hx/FS Hx/Imm Hx Endocrine/Hematology History: Reports: Hx Diabetes, Hx Thyroid Disease - levothyroxine Cardiovascular History: Reports: Hx Hypertension, Hx Peripheral Vascular Disease - neuropathy r/t diabetes, Other Cardiovascular Problems/Disorders - 2 cardiac stents placed History: Reports: Hx Kidney Stones - none in 20 years Musculoskeletal History: Reports: Hx Arthritis, Other Musculoskeletal History - compressed disc in lower back Sensory History: Reports: Hx Contacts or Glasses - glasses, Hx Hearing Aid - bilat Opthamlomology History: Reports: Hx Contacts or Glasses - glasses Neurological History: Reports: Hx Dementia, Hx Nerve Disease - diabetic neuropathy - Cancer History Hx Chemotherapy: No - Surgical History Surgery Procedure, Year, and Place: appendectomy. tonsillectomy. left and right knee replacements. 2 cardiac stents. right rotator cuff surgery. lumbar laminectomy L4-5/L5-S1 Hx Anesthesia Reactions: No Infectious Disease History: No Infectious Disease History: Denies: Traveled Outside the [place] in Last 30 Days - Family History Known Family History: Negative: Diabetes - Social History Alcohol Use: Occasionally Substance Use Type: Reports: None Smoking Status (MU): Former Smoker Amount Used/How Often: smoked for less than 20 years, a very light smoker Review of Systems Positive: Other - Left elbow pain, head pain Neurological: Other - Amnesia All Other Systems Reviewed And Are Negative: Yes Physical Exam - Summary Physical Exam Summary: Appearance: Well-appearing, Well-nourished Skin: Warm, Dry, No rash Eyes: Normal, PERRL, EOMI, sclera anicteric ENT: Normal Neck: Supple, nontender Respiratory: Clear to auscultation Cardiovascular: S1, S2, no murmur, no rub, no gallop Abdomen: Soft, nontender, no organomegaly Bowel sounds: Present Musculoskeletal: Normal, Strength/ROM Intact, no edema, pulses symmetrical Neurological: Normal except forgetful, doesn't know month, couldn't remember name of hospital but knows it's in [place], which is in [facility], A&Ox2, cranial nerves II-XII WNL, follows commands, gait not tested, sensation intact to pin and light touch Psychiatric: affect normal, behavior appropriate, dressed appropriately, judgment intact Triage Information Reviewed: Yes Vital Signs On Initial Exam: Initial Vitals Temp Pulse Resp BP Pulse Ox 97.4 F 60 20 214/93 99 10/23/17 18:10 10/23/17 18:10 10/23/17 18:10 10/23/17 18:10 10/23/17 18:10 Vital Signs Reviewed: Yes Diagnostics - Vital Signs Vital Signs Temp Pulse Resp BP Pulse Ox 10/23/17 18:10 97.4 F 60 20 214/93 99 - Laboratory Result Diagrams: 10/23/17 19:05 10/23/17 19:05 Lab Statement: Any lab studies that have been ordered have been reviewed, and results considered in the medical decision making process. - Radiology Elbow XR Xray Interpretation: No Acute Changes - NO ACUTE OSSEOUS INJURY. IF SYMPTOMS PERSIST, RECOMMEND REPEAT IMAGING. Dr. Sheehan has reviewed this report. Radiology Interpretation Completed By: Radiologist - CT CT Brain CT Interpretation: Positive (See Comments) - 1. NO ACUTE INTRACRANIAL PATHOLOGY. 2. CHRONIC SMALL VESSEL ISCHEMIC CHANGES. 3. THERE IS DIFFUSE INVOLUTIONAL CHANGE WITH SOMEWHAT DISPROPORTIONATE ENLARGEMENT OF THE VENTRICULAR SYSTEM WITH SUSPECTED THE SULCI WHICH MAY INDICATE THE PRESENCE OF AN ADULT ONSET COMMUNICATING HYDROCEPHALUS, INCLUDING NORMAL PRESSURE HYDROCEPHALUS. Dr. Sheehan has reviewed this report. CT Interpretation Completed By: Radiologist Head Injury Course/Dx Assessment/Plan: The patient is an 82 year old male who presents to the ED after falling while walking today. He complains of head pain, amnesia, and elbow pain. In the ED course the patient was given Potassium chloride. Bloodwork was obtained. Elbow X-ray shows no acute changes. Brain CT shows 1. NO ACUTE INTRACRANIAL PATHOLOGY. 2. CHRONIC SMALL VESSEL ISCHEMIC CHANGES. 3. THERE IS DIFFUSE INVOLUTIONAL CHANGE WITH SOMEWHAT DISPROPORTIONATE ENLARGEMENT OF THE VENTRICULAR SYSTEM WITH SUSPECTED THE SULCI WHICH MAY INDICATE THE PRESENCE OF AN ADULT ONSET COMMUNICATING HYDROCEPHALUS, INCLUDING NORMAL PRESSURE HYDROCEPHALUS. The patient is diagnosed with head trauma, possible normal pressure hydrocephalus, orthostatic hypotension, and diabetes. The patient is instructed to follow up with primary care. - Diagnoses Provider Diagnoses: Head trauma, possible normal pressure hydrocephalus, Diabetes, Orthostatic hypotension Discharge - Discharge Plan Condition: Fair Disposition: HOME Prescriptions: Fludrocortisone Acetate TAB* [Florinef TAB*] 0.1 mg PO DAILY #30 tab Patient Education Materials: Hydrocephalus (DC), Hypotension (ED) Referrals: Clint CORONEL,Juvenal Blount [Primary Care Provider] - Additional Instructions: RETURN TO THE EMERGENCY DEPARTMENT FOR CHANGING OR WORSENING SYMPTOMS. The documentation as recorded by the Dawson calvert Jennifer accurately reflects the service I personally performed and the decisions made by me, Dov Sheehan MD.
[2017-10-24 01:10] VITALS: BP 189/77
== END 2017-10-23 20:34 | disposition home or self-care (01) ==
LOC: ED 17:59
DX: S09.90XA Unspecified injury of head, initial encounter (principal); W19.XXXA Unspecified fall, initial encounter; Y93.01 Activity, walking, marching and hiking; Y92.9 Unspecified place or not applicable; E11.9 Type 2 diabetes mellitus without complications; I95.1 Orthostatic hypotension; Z88.3 Allergy status to other anti-infective agents; Z88.8 Allergy status to other drugs, medicaments and biological substances; Z87.891 Personal history of nicotine dependence
CPT/HCPCS: 36415; 70450; 80053; 84443; 85025; 99283; A9270-GY

== ENCOUNTER 2018-10-08 12:31 | Emergency (ER) | payer MEDICARE, BC ==
[2018-10-08 12:50] VITALS: BP 113/83
--- NOTE | 2018-10-08 13:49 | ED ---
Skin Complaint - HPI Summary HPI Summary: 83-year-old male presents with left toe laceration 2 days ago. He denies any pain. He has a history of neuropathy. area continues to bleed. He is diabetic. He denies any fever or spreading redness. He is concerned that will get infected. He is not sure exactly when he got because the injury. Denies any other complaints. No chest pain or shortness breath. - History of Current Complaint Chief Complaint: UCLowerExtremity Time Seen by Provider: 10/08/18 13:38 Stated Complaint: TOE LACERATION IN DIABETIC Pain Intensity: 0 - Additional Pertinent History Primary Care Physician: [id number] - Allergy/Home Medications Allergies/Adverse Reactions: Allergies Allergy/AdvReac Type Severity Reaction Status Date / Time donepezil [From Aricept] Allergy Congestion Verified 10/08/18 12:50 neosporin Allergy increased Uncoded 10/08/18 12:50 swelling PMH/Surg Hx/FS Hx/Imm Hx Endocrine/Hematology History: Reports: Hx Diabetes - type 1, Hx Thyroid Disease - levothyroxine Cardiovascular History: Reports: Hx Hypertension, Hx Peripheral Vascular Disease - neuropathy r/t diabetes, Other Cardiovascular Problems/Disorders - 2 cardiac stents placed History: Reports: Hx Kidney Stones - none in 20 years Musculoskeletal History: Reports: Hx Arthritis, Other Musculoskeletal History - compressed disc in lower back Sensory History: Reports: Hx Contacts or Glasses - glasses, Hx Hearing Aid - bilat Opthamlomology History: Reports: Hx Contacts or Glasses - glasses Neurological History: Reports: Hx Dementia, Hx Nerve Disease - diabetic neuropathy - Cancer History Hx Chemotherapy: No - Surgical History Surgery Procedure, Year, and Place: appendectomy. tonsillectomy. left and right knee replacements. 2 cardiac stents. right rotator cuff surgery. lumbar laminectomy L4-5/L5-S1 Hx Anesthesia Reactions: No Infectious Disease History: No Infectious Disease History: Denies: Traveled Outside the [place] in Last 30 Days - Family History Known Family History: Negative: Diabetes - Social History Alcohol Use: Occasionally Substance Use Type: Reports: None Smoking Status (MU): Former Smoker Amount Used/How Often: smoked for less than 20 years, a very light smoker Review of Systems Negative: Fever Negative: Chest Pain Negative: Shortness Of Breath Positive: Other - laceration left toe All Other Systems Reviewed And Are Negative: Yes Physical Exam Triage Information Reviewed: Yes Vital Signs On Initial Exam: Initial Vitals Temp Pulse Resp BP Pulse Ox 98 F 59 18 113/83 100 10/08/18 12:46 10/08/18 12:46 10/08/18 12:46 10/08/18 12:46 10/08/18 12:46 Vital Signs Reviewed: Yes Appearance: Positive: Well-Appearing Skin: Positive: Warm, Dry, Other - 1cm superficial laceration to left middle toe distal phalanx Head/Face: Positive: Normal Head/Face Inspection Eyes: Positive: Normal, Conjunctiva Clear ENT: Positive: Pharynx normal Respiratory/Lung Sounds: Positive: Clear to Auscultation, Breath Sounds Present Cardiovascular: Positive: Normal, RRR Musculoskeletal: Positive: Strength/ROM Intact - foot, Other - good pulses Neurological: Positive: Other - decreased sensation toes at baseline Psychiatric: Positive: Normal Procedures - Laceration/Wound Repair 1 Location: Other - left middle toe Description: Irregular Length, Depth and Shape: 1cm superficial Irrigated w/ Saline (ccs): 50 Closure: SteriStrips Diagnostics - Vital Signs Vital Signs Temp Pulse Resp BP Pulse Ox 10/08/18 12:46 98 F 59 18 113/83 100 - Laboratory Lab Statement: Any lab studies that have been ordered have been reviewed, and results considered in the medical decision making process. Course/Dx - Course Course Of Treatment: 83-year-old male presents with left toe laceration 2 days ago. He denies any pain. He has a history of neuropathy. area continues to bleed. He is diabetic. He denies any fever or spreading redness. He is concerned that will get infected. He is not sure exactly when he got because the injury. Denies any other complaints. No chest pain or shortness breath. On exam has half centimeters superficial laceration to left middle toe. Cleaned area and placed Steri-Strips. With history of diabetes will place on Keflex. warned if developed any spreading redness or fever to go to ED. Patient understands and agrees with plan. - Differential Diagnoses - Skin Complaint Differential Diagnoses: Cellulitis, Other - laceration, abrasion - Diagnoses Provider Diagnoses: Toe laceration Discharge - Sign-Out/Discharge Documenting (check all that apply): Patient Departure All imaging exams completed and their final reports reviewed: No Studies - Discharge Plan Condition: Good Disposition: HOME Prescriptions: Cephalexin CAP* [Keflex CAP*] 500 mg PO BID #14 cap Patient Education Materials: Laceration Without Closure (ED) Referrals: Antony Dill MD [Primary Care Provider] - Additional Instructions: take keflex twice a day for 7 days follow up with podiatry wash area once a day Go to ED if develop any spreading redness or fever or any new or worsening symptoms - Billing Disposition and Condition Condition: GOOD Disposition: Home
== END 2018-10-08 13:58 | disposition home or self-care (01) ==
LOC: UCEAST 12:31
DX: S91.115A Laceration without foreign body of left lesser toe(s) without damage to nail, initial encounter (principal); X58.XXXA Exposure to other specified factors, initial encounter; Y92.9 Unspecified place or not applicable; E07.9 Disorder of thyroid, unspecified; E10.9 Type 1 diabetes mellitus without complications; I25.10 Atherosclerotic heart disease of native coronary artery without angina pectoris; I10 Essential (primary) hypertension; Z95.5 Presence of coronary angioplasty implant and graft; Z88.3 Allergy status to other anti-infective agents; Z88.8 Allergy status to other drugs, medicaments and biological substances; Z87.891 Personal history of nicotine dependence
CPT/HCPCS: 99212; G0463

== ENCOUNTER 2018-11-28 13:22 | Emergency (ER) | payer MEDICARE, BC ==
[2018-11-28 13:40] VITALS: BP 119/67
--- NOTE | 2018-11-28 15:27 | UC ---
Skin Complaint HPI - HPI Summary HPI Summary: patient c/o tips of fingers turning blue when he is cold for the past couple of months --resolves when his hands get warm patient wants to be sure he is ok to travel to [place] - History of Current Complaint Chief Complaint: UCSkin Time Seen by Provider: 11/28/18 14:02 Stated Complaint: FINGER TIPS TURNING PURPLE Hx Obtained From: Patient Onset/Duration: Gradual Onset, Resolved Timing: Intermittent Episodes Lasting: Current Severity: None Pain Intensity: 0 Pain Scale Used: 0-10 Numeric Character: Exposure to Cold Intermittent Aggravating Factor(s): Other - cold exposure Alleviating Factor(s): Other - warmth Associated Signs & Symptoms: Positive: Negative - Allergy/Home Medications Allergies/Adverse Reactions: Allergies Allergy/AdvReac Type Severity Reaction Status Date / Time donepezil [From Aricept] Allergy Congestion Verified 11/28/18 13:34 neosporin Allergy increased Uncoded 11/28/18 13:34 swelling Home Medications: Home Medications Acetaminophen [Acetaminophen Extra Strength] 500 mg PO BID PRN 11/28/18 [ History Confirmed 11/28/18] Multivitamin [Multivitamins] 1 cap PO DAILY 11/28/18 [History Confirmed 11/28/18 ] PMH/Surg Hx/FS Hx/Imm Hx Previously Healthy: No Endocrine History: Diabetes, Hypothyroidism, Dyslipidemia Cardiovascular History: Hypertension Psychological History: Other Other Psychological History: memory disorder - Surgical History Surgical History: Yes Surgery Procedure, Year, and Place: appendectomy. tonsillectomy. left and right knee replacements. 2 cardiac stents. right rotator cuff surgery. lumbar laminectomy L4-5/L5-S1 - Family History Known Family History: Negative: Diabetes - Social History Occupation: Retired Lives: With Family Alcohol Use: Occasionally Substance Use Type: None Smoking Status (MU): Former Smoker Amount Used/How Often: smoked for less than 20 years, a very light smoker When Did the Patient Quit Smoking/Using Tobacco: 40 yrs Review of Systems All Other Systems Reviewed And Are Negative: Yes Constitutional: Positive: Negative Skin: Positive: Other - tips of fingers turn blue when exposed to the cold Eyes: Positive: Negative ENT: Positive: Negative Respiratory: Positive: Negative Cardiovascular: Positive: Negative Gastrointestinal: Positive: Negative Genitourinary: Positive: Negative Motor: Positive: Negative Neurovascular: Positive: Negative Musculoskeletal: Positive: Negative Neurological: Positive: Negative Psychological: Positive: Negative Is Patient Immunocompromised?: No Physical Exam Triage Information Reviewed: Yes Appearance: Well-Appearing, No Pain Distress, Well-Nourished Vital Signs: Initial Vital Signs Temp 97.1 F 11/28/18 13:28 Pulse 60 11/28/18 13:28 Resp 16 11/28/18 13:28 BP 119/67 11/28/18 13:28 Pulse Ox 99 11/28/18 13:28 Vital Signs Reviewed: Yes Eye Exam: Normal Eyes: Positive: Conjunctiva Clear ENT Exam: Normal ENT: Positive: Normal ENT inspection, Hearing grossly normal, Pharynx normal, Uvula midline. Negative: Nasal congestion, Trismus, Muffled voice, Hoarse voice , Sinus tenderness Dental Exam: Normal Neck exam: Normal Neck: Positive: Supple, Nontender, No Lymphadenopathy Respiratory Exam: Normal Respiratory: Positive: Chest non-tender, No respiratory distress, No accessory muscle use Cardiovascular Exam: Normal Cardiovascular: Positive: RRR, Pulses Normal, Brisk Capillary Refill Musculoskeletal Exam: Normal Musculoskeletal: Positive: Strength Intact, ROM Intact, No Edema Neurological Exam: Normal Neurological: Positive: Alert, Muscle Tone Normal Psychological Exam: Normal Psychological: Positive: Normal Response To Family Skin Exam: Normal Re-Evaluation - Re-Evaluation First Eval Change: Improved - pink warm brisk cap refill after warming hands Course/Dx - Course Course Of Treatment: keep hands warm---follow with pcp prn - Diagnoses Provider Diagnosis: Raynaud's disease Discharge - Sign-Out/Discharge Documenting (check all that apply): Patient Departure All imaging exams completed and their final reports reviewed: No Studies - Discharge Plan Condition: Stable Disposition: HOME Patient Education Materials: Raynaud Disease (ED) Referrals: Antony Dill MD [Primary Care Provider] - If Needed - Billing Disposition and Condition Condition: STABLE Disposition: Home
== END 2018-11-28 14:30 | disposition home or self-care (01) ==
LOC: UCEAST 13:22
DX: I73.00 Raynaud's syndrome without gangrene (principal); I10 Essential (primary) hypertension; E11.9 Type 2 diabetes mellitus without complications; Z87.891 Personal history of nicotine dependence; Z88.1 Allergy status to other antibiotic agents; Z88.8 Allergy status to other drugs, medicaments and biological substances
CPT/HCPCS: 99211; G0463

== ENCOUNTER 2019-01-09 20:07 | Emergency (ER) | payer MEDICARE, BC ==
--- OUTSIDE RECORDS SUMMARY | 2019-01-09 20:12 | XMS REPORT | Continuity of Care Document ---
:1935 External Reference #:[id number] Author Name Judie Avila Care Team Providers Name Role Phone Antony Dill MD Primary Care Physician Unavailable Payers Date Identification Numbers Payment Provider Subscriber Policy Number: [id number] Medicare Antony Montez PayID: [id number] [address] [place] [address] Policy Number: [id number] [facility] Ins Ppo/Epo Antony Montez PayID: [id number] [address] [place] [address] Advance Directives Description No Information Available Problems Active Problems Provider Date Spinal stenosis of lumbar region Chente Nobles M.D. Onset: 05/20/2017 Low back pain Chente Noblse M.D. 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 Cigarette Use Pack Years - 10 Tobacco Use Start: Unknown Heavy tobacco smoker 2 packs a day (more than 10 cigarettes/day) Cigarette Use Quit 50 Years Ago Smoking Status Reviewed: 01/08/19 Heavy tobacco smoker 2 packs a day (more than 10 cigarettes/day) ETOH Use Occasionally consumes alcohol Tobacco Use Start: Unknown Patient is a former End: Unknown smoker Recreational Drug Use Denies Drug Use Exercise Type/Frequency Walks daily Exercise Type/Frequency Bikes daily recumbent Exercise Type/Frequency Bowflex using 5-7 days per week Allergies, Adverse Reactions, Alerts Active Allergies Reaction Severity Comments Date Neosporin rash 05/09/2017 Donepezil nightmares 05/09/2017 Medications Active Medications SIG Qnty Indications Ordering Provider Date Metoprolol Succinate 1 tablet po daily Juvenal Jaramillo 08/01/2017 ER Am MD Latrell 25mg Tablets ER 24HR Atorvastatin Calcium 1 tablet po daily Juvenal Jaramillo 08/01/2017 40mg morning MD Latrell Tablets Metformin HCL ER 1 tablet po twice Juvenal Jaramillo 08/01/2017 750mg daily am/pm MD Latrell Tablets ER 24HR Levothyroxine Sodium 1tablet po daily Juvenal Jaramillo 08/01/2017 Am MD Latrell 25mcg Tablets Ibuprofen 2 tablet po twice Unknown 200mg Tablets daily ( decreased since back surgery med change 1-2 wks) Ipratropium [employer] spray 2 sprays in Unknown 0.03% each nostril two Solution times daily as needed Multivitamin Adult 1 by mouth every Unknown day Tablets Aspir-81 1 by mouth every Unknown 81mg Tablets DR Vitamin B-12 1 by mouth every Unknown Natural day 500mcg Tablets Memantine HCL Take One Tablet By Unknown 10mg Mouth Twice A Day Tablets For Memory Lisinopril 1 tablet po twice Unknown 2.5mg Tablets daily History Medications Fludrocortisone Acetate Take One Tablet By Unknown - 0.1mg Tablets Mouth Each Morning With 12/16/2017 Food Or Milk For Orthostati Gabapentin Unknown - 100mg Capsules 05/13/2017 Ipratropium [employer] Unknown - 0.03% Solution 12/09/2017 Diclofenac Sodium Unknown - 50mg Tablets DR 06/09/2017 Celebrex 1 tab by mouth twice a Unknown - 100mg Capsules day as needed 09/22/2017 Humalog Kwikpen sliding scale Unknown - 100Unit/ML Solution 09/22/2017 Pen-Inject Celebrex 1 tab by mouth twice a Unknown - 100mg Capsules day as needed 01/07/2019 Tylenol Extra Strength 2 by mouth as needed Unknown - 500mg Tablets 12/16/2017 Immunizations Description No Information Available Vital Signs Date Vital Result Comment 01/08/2019 10:40am Height 73 inches 6'1" Weight 199.00 lb with shoes Heart Rate 64 /min BP Systolic Sitting 125 mmHg Rue reg cuff BP Diastolic Sitting 70 mmHg Rue reg cuff BP Systolic Standing 120 mmHg Rue reg cuff BP Diastolic Standing 68 mmHg Rue reg cuff Respiratory Rate 15 /min BMI (Body Mass Index) 26.3 kg/m2 12/17/2017 1:44pm Height 73 inches 6'1" Weight 197.00 lb Heart Rate 63 /min BP Systolic 110 mmHg rue reg cuff BP Diastolic 60 mmHg rue reg cuff BP Systolic Sitting 120 mmHg lue reg cuff BP Diastolic Sitting 72 mmHg lue reg cuff BP Systolic Standing 121 mmHg lue reg cuff BP Diastolic Standing 72 mmHg lue reg cuff Respiratory Rate 16 /min BMI (Body Mass Index) 26.0 kg/m2 09/22/2017 10:22am Height 73 inches 6'1" Weight 200.00 lb Heart Rate 62 /min BP Systolic Sitting 132 mmHg BP Diastolic Sitting 81 mmHg Pain Level 2 BMI (Body Mass Index) 26.4 kg/m2 08/22/2017 9:35am Height 73 inches 6'1" Weight 200.00 lb Heart Rate 61 /min BP Systolic Sitting 118 mmHg BP Diastolic Sitting 62 mmHg Pain Level 5 BMI (Body Mass Index) 26.4 kg/m2 07/21/2017 1:22pm Height 73 inches 6'1" Weight 195.00 lb Heart Rate 64 /min BP Systolic Sitting 136 mmHg BP Diastolic Sitting 80 mmHg Pain Level 0 BMI (Body Mass Index) 25.7 kg/m2 07/02/2017 12:47pm Height 73 inches 6'1" Weight 195.00 lb Heart Rate 66 /min BP Systolic Sitting 110 mmHg BP Diastolic Sitting 70 mmHg Pain Level 0 BMI (Body Mass Index) 25.7 kg/m2 06/09/2017 11:18am Height 73 inches 6'1" Weight 195.00 lb Heart Rate 72 /min BP Systolic Sitting 140 mmHg BP Diastolic Sitting 78 mmHg Body Temperature 98.0 F Pain Level 5 BMI (Body Mass Index) 25.7 kg/m2 05/16/2017 10:44am Height 73 inches 6'1" Weight 195.00 lb Heart Rate 66 /min BP Systolic Sitting 138 mmHg BP Diastolic Sitting 80 mmHg Pain Level 4 BMI (Body Mass Index) 25.7 kg/m2 05/09/2017 11:05am Height 73 inches 6'1" Weight 195.00 lb Heart Rate 64 /min BP Systolic Sitting 142 mmHg BP Diastolic Sitting 80 mmHg Pain Level 3 BMI (Body Mass Index) 25.7 kg/m2 Results Test Date Facility Test Result H/L Range Note Laboratory test 06/17/2017 [facility] Point of Care 145 mg/dL High 70-100 [address] [place] [address] [phone] Laboratory test 06/17/2017 [facility] Point of Care 133 mg/dL High 70-100 [address] [place] [address] [phone] Laboratory test 05/27/2017 [facility] Point of Care 135 mg/dL High 70-100 [address] [place] [address] [phone] Basic Metabolic 05/23/2017 [facility] Sodium 140 mmol/L N 133- [address] [place] [address] [phone] Potassium 3.9 mmol/L N 3.5-5.0 Chloride 103 mmol/L N 101-111 Co2 Carbon Dioxide 30 mmol/L N 22-32 Anion Gap 7 mmol/L N 2-11 Glucose 121 mg/dL High 70-100 Blood Urea Nitrogen 18 mg/dL N 6-24 Creatinine 0.91 mg/dL N 0.67-1.17 BUN/Creatinine Ratio 19.8 N 8-20 Calcium 9.2 mg/dL N 8.6-10.3 Egfr Non- 79.6 N >60 Egfr 102.3 N >60 4 CBC No Diff 05/23/2017 [facility] White Blood 7.9 10^3/uL N 3.5-10.[address] [place] [address] [phone] Red Blood Count 3.90 10^6/uL Low 4.0-5.4 Hemoglobin 13.4 g/dL Low 14.0-18.0 Hematocrit 39 % Low 42-52 Mean Corpuscular Volume 99 fL High 80-94 Mean Corpuscular Hemoglobin 34 pg High 27-31 Mean Corpuscular HGB Conc 35 g/dL N 31-36 Red Cell Distribution Width 14 % N 10.5-15 Platelet Count 188 10^3/uL N 150-450 Mean Platelet Volume 9 um3 N 7.4-10.4 1 [employer] Spray Supervisor: [id number] 2 [employer] Spray Supervisor: [id number] 3 [employer] Spray Supervisor: [id number] 4 Because ethnic data is not always readily available, this report includes an eGFR for both -Americans and non- Americans. The National Kidney Disease Education Program (NKDEP) does not endorse the use of the MDRD equation for patients that are not between the ages of 18 and 70, are , have extremes of body size, muscle mass, or nutritional status, or are non- or non-. According to the National Kidney Foundation, irrespective of diagnosis, the stage of the disease is based on the level of kidney function: Stage Description GFR(mL/min/1.73 m(2)) 1 Kidney damage with normal or decreased GFR 90 2 Kidney damage with mild decrease in GFR 60-89 3 Moderate decrease in GFR 30-59 4 Severe decrease in GFR 15-29 5 Kidney failure <15 (or dialysis) Procedures Date Code Description Status 01/08/2019 25874 EKG Tracing & Interpretation Completed 12/17/2017 01886 EKG Tracing & Interpretation Completed 06/17/2017 18043 Abebe/Facet/Foraminotomy;Ea Addl Segment; Cerv, Thora, Or Completed Lumbar 06/17/2017 14132 Abebe/Facet/Foraminotomy;Ea Addl Segment; Cerv, Thora, Or Completed Lumbar 06/17/2017 47243 Abebe/Facet/Foraminotomy;Vertebral Segment; Lumbar Completed 06/17/2017 38986 Abebe/Facet/Foraminotomy;Vertebral Segment; Lumbar Completed Encounters Type Date Location Provider Dx Diagnosis Office Visit 12/17/2017 [facility] Kaushik Rodas I10 Essential ( primary) 2:00p Of [facility] B[facility] M.D. hypertension I25.10 [facility] heart disease of [place] coronary artery w/o ang pctrs Office Visit 09/22/2017 Neurosurgery Chente Nobles, M54.5 Low back pain 10:20a Services [facility] Office Visit 06/21/2017 [facility] E11.8 Type 2 diabetes 9:35a Assoc,eloisa Whitfield M.D. mellitus with Hospitalists unspecified complications I10 Essential (primary) hypertension F03.90 Unspecified dementia without behavioral disturbance Z98.890 Other specified postprocedural states Office Visit 06/20/2017 [facility] S. E11.8 Type 2 diabetes 9:34a Assoc,eloisa Foster, N.P. mellitus with Hospitalists unspecified complications F03.90 Unspecified dementia without behavioral disturbance I10 Essential (primary) hypertension Z98.890 Other specified postprocedural states [facility] E11.8 Type 2 diabetes 9:33a Assoc,pc Joshua, N.P. mellitus with Hospitalists unspecified complications F03.90 Unspecified dementia without behavioral disturbance I10 Essential (primary) hypertension Z98.890 Other specified postprocedural states Office Visit 06/18/2017 [facility] E11.8 Type 2 diabetes 9:33a Assoc,eloisa Abdalla, N.P. mellitus with Hospitalists unspecified complications I10 Essential (primary) hypertension F03.90 Unspecified dementia without behavioral disturbance Z98.890 Other specified postprocedural states Office Visit 06/09/2017 11:10a Neurosurgery Chente Nobles M48.06 [facility] [place] stenosis, lumbar region Office Visit 05/16/2017 10:50a Neurosurgery Chente Nobles M48.06 [facility] [place] stenosis, lumbar region Office Visit 05/09/2017 10:45a Neurosurgery Mahnaz Gutierrez M48.06 [facility] [place]-C stenosis, lumbar region Plan of Treatment 01/08/2019 - Kaushik Barrow M.D.I25.10 Atherosclerotic heart disease of [place] coronary artery withFollow up:1 yearI10 Essential (primary) hypertension
[2019-01-09 20:21] VITALS: BP 146/82
--- NOTE | 2019-01-09 20:35 | UC ---
Lower Extremity/Ankle HPI - HPI Summary HPI Summary: This patient is an 83-year-old male who presents to the urgent care with a chief complaint of left knee pain. The patient reports that he was playing with his grandchildren this afternoon walking after them and afterwards she developed this left knee pain and 1 episode of and the spasm. It lasted for a couple minutes and resolved. At this point the patient reports no knee pain but his leg swelling. He has no other complaints. There is no history of falling or trauma. - History of Current Complaint Chief Complaint: UCLowerExtremity Stated Complaint: KNEE AND LEG COMPLAINT Time Seen by Provider: 01/09/19 20:23 Onset/Duration: Sudden Onset Severity Initially: Mild Severity Currently: None Pain Intensity: 1 - Allergies/Home Medications Allergies/Adverse Reactions: Allergies Allergy/AdvReac Type Severity Reaction Status Date / Time donepezil [From Aricept] Allergy Congestion Verified 01/09/19 20:21 neosporin Allergy increased Uncoded 01/09/19 20:21 swelling PMH/Surg Hx/FS Hx/Imm Hx Previously Healthy: Yes Endocrine History: Diabetes Cardiovascular History: Cardiac Disease, Hypertension - Surgical History Surgical History: Yes Surgery Procedure, Year, and Place: appendectomy. tonsillectomy. left and right knee replacements. 2 cardiac stents. right rotator cuff surgery. lumbar laminectomy L4-5/L5-S1 - Family History Known Family History: Negative: Diabetes - Social History Alcohol Use: Occasionally Substance Use Type: None Smoking Status (MU): Former Smoker Amount Used/How Often: smoked for less than 20 years, a very light smoker When Did the Patient Quit Smoking/Using Tobacco: 40 yrs Review of Systems All Other Systems Reviewed And Are Negative: Yes Constitutional: Positive: Negative Skin: Positive: Negative Eyes: Positive: Negative ENT: Positive: Negative Respiratory: Positive: Negative Cardiovascular: Positive: Negative Gastrointestinal: Positive: Negative Genitourinary: Positive: Negative Motor: Positive: Negative Neurovascular: Positive: Negative Musculoskeletal: Positive: Other: - left knee pain Neurological: Positive: Negative Psychological: Positive: Negative Is Patient Immunocompromised?: No Physical Exam - Summary Physical Exam Summary: Vital signs: reviewed General: Patient is comfortable lying in stretcher with no signs of distress HEENT: within normal limits Lungs: CTA B/L CVS: S1 & S2 present. No murmurs appreciated. ABDOMEN: Soft, non-tender. No signs of distention. No rebound no guarding, and no masses palpated. Bowel sounds are normal. EXTREMITIES: FROM in all major joints, no edema, no cyanosis or clubbing. NEURO: Alert and oriented x 3. No acute neurological deficits. Speech is normal and follows commands. SKIN: Dry and warm ABDOMEN: Soft, non-tender. No signs of distention. No rebound no guarding, and no masses palpated. Bowel sounds are normal. EXTREMITIES: Left knee with slight swelling, no echymosis, no deformity and FROM NEURO: Alert and oriented x 3. No acute neurological deficits. Speech is normal and follows commands. SKIN: Dry and warm Triage Information Reviewed: Yes Vital Signs: Initial Vital Signs Temp 97.4 F 01/09/19 20:12 Pulse 65 01/09/19 20:12 Resp 16 01/09/19 20:12 BP 146/82 01/09/19 20:12 Pulse Ox 100 01/09/19 20:12 Diagnostics - Radiology left knee x ray Radiology Interpretation Completed By: ED Physician Summary of Radiographic Findings: Negative for fracture or dislocation Lower Extremity Course/Dx - Course Course Of Treatment: Left knee x-ray impression: No fracture or dislocation. Hardware is in place. Therefore the patient was recommended to apply ice, take Tylenol for the pain and follow-up with his orthopedic doctor. The patient understands and agrees. She was able to ambulate and has no pain at this point. - Differential Dx/Diagnosis Provider Diagnosis: Knee pain, acute Discharge - Sign-Out/Discharge Documenting (check all that apply): Patient Departure All imaging exams completed and their final reports reviewed: Yes - Discharge Plan Condition: Stable Disposition: HOME Patient Education Materials: Knee Pain (ED) Referrals: Antony Dill MD [Primary Care Provider] - Additional Instructions: Take medications as instructed. Follow-up with the primary care physician the next 2 days. Return to the urgent care if symptoms worsen. - Billing Disposition and Condition Condition: STABLE Disposition: Home
== END 2019-01-09 21:08 | disposition home or self-care (01) ==
LOC: UCEAST 20:07
DX: M25.562 Pain in left knee (principal); M85.862 Other specified disorders of bone density and structure, left lower leg; I73.9 Peripheral vascular disease, unspecified; E11.9 Type 2 diabetes mellitus without complications; I11.9 Hypertensive heart disease without heart failure; Z95.5 Presence of coronary angioplasty implant and graft; Z96.653 Presence of artificial knee joint, bilateral; Z88.3 Allergy status to other anti-infective agents; Z88.8 Allergy status to other drugs, medicaments and biological substances; Z87.891 Personal history of nicotine dependence
CPT/HCPCS: 99212; G0463

== ENCOUNTER 2019-06-30 11:55 | Observation (INO) | payer MEDICARE, BC ==
--- OUTSIDE RECORDS SUMMARY | 2019-06-30 12:08 | XMS REPORT | Continuity of Care Document ---
:1935 External Reference #:[id number] Author Name Huey Butcher MD (transmitted by agent of provider Kaylie Gomez) Address [address] [place] [id number] Care Team Providers Name Role Phone Chente Nobles M.D. - Neurological Care Team Information Director Of Physical Security [phone] Surgery Mahnaz Gutierrez PA-C - Physician Care Team Information Director Of Physical Security [phone] [employer] Agent Antony Dill MD - Family Care Team Information Director Of Physical Security [phone] Medicine Problems Active Problems Provider Date Spinal stenosis of lumbar region Chente Nobles M.D. Onset: 05/20/2017 Olecranon bursitis Huey Butcher MD Onset: 05/12/2019 Low back pain Chente Nobles M.D. Onset: 09/22/2017 Social History Type Date Description Comments Sex Unknown Cigarette Use Pack Years - 10 Tobacco Use Start: Unknown Heavy tobacco smoker 2 packs a day (more than 10 cigarettes/day) Cigarette Use Quit 50 Years Ago Smoking Status Reviewed: 06/15/19 Heavy tobacco smoker 2 packs a day [...] tablet po daily Juvenal Jaramillo 08/01/2017 ER Irene Sams MD 25mg Tablets ER 24HR Atorvastatin Calcium 1 tablet po daily Juvenal Jaramillo 08/01/2017 40mg morning MD Latrell Tablets Metformin HCL ER 1 tablet po twice Juvenal Jaramillo 08/01/2017 750mg daily am/pm MD Latrell Tablets ER 24HR Levothyroxine Sodium 1tablet po daily Juvenal Jaramillo 08/01/2017 Am MD Latrell 25mcg Tablets Lisinopril 1 tablet po twice Unknown 2.5mg Tablets daily Memantine HCL Take One Tablet By Unknown 10mg Mouth Twice A Day Tablets For Memory Vitamin B-12 1 by mouth every Unknown Natural day 500mcg Tablets Aspir-81 1 by mouth every Unknown 81mg Tablets DR day Multivitamin Adult 1 by mouth every Unknown day Tablets Ipratropium [place] spray 2 sprays in Unknown 0.03% each nostril two Solution times daily as needed Ibuprofen 2 tablet po twice Unknown 200mg Tablets daily ( decreased since back surgery med change 1-2 wks) Medications Administered in Office Medication SIG Qnty Indications Ordering Provider Date No Injection Huey Butcher MD 05/12/2019 Injection Immunizations Description No Information Available Vital Signs Date Vital Result Comment 06/15/2019 11:36am Height 73 inches 6'1" Heart Rate 118 /min BP Systolic 118 mmHg BP Diastolic 78 mmHg Respiratory Rate 18 /min Body Temperature 98.0 F Pain Level 1 05/12/2019 10:30am Height 73 inches 6'1" Weight 200.00 lb Heart Rate 81 /min BP Systolic Sitting 127 mmHg BP Diastolic Sitting 77 mmHg Respiratory Rate 16 /min Body Temperature 98.5 F Pain Level 0 BMI (Body Mass Index) 26.4 kg/m2 Results Description No Information Available Procedures Date Code Description Status 05/12/2019 29406 Inject/Drain Joint/Bursa Major W/O US Completed 01/08/2019 39676 EKG Tracing & Interpretation Completed Medical Devices Description No Information Available Encounters Type Date Location Provider Dx Diagnosis Office Visit 05/12/2019 [facility] Huey Butcher M70.22 Olecranon 9:30a at [place] bursitis, left elbow Office Visit 01/08/2019 [facility] Kaushik Rodas 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 disease of [place] coronary artery w/o ang pctrs I10 Essential (primary) hypertension I45.10 Unspecified right bundle-branch block Assessments Date Code Description Provider 06/15/2019 M70.22 Olecranon bursitis, left elbow Huey Butcher MD 05/12/2019 M70.22 Olecranon bursitis, left elbow Huey Butcher MD 01/08/2019 I25.10 Atherosclerotic heart disease of [place] Kaushik Barrow M.D. coronary artery with 01/08/2019 I10 Essential (primary) hypertension Kaushik Barrow M.D. 01/08/2019 I45.10 Unspecified right bundle-branch block Kaushik Barrow M.D. Plan of Treatment 06/15/2019 - Huey Butcher, LENIN70.22 Olecranon bursitis, left elbowFollow up: Follow up: As needed Functional Status Description No Information Available Mental Status Description No Information Available Referrals Description No Information Available
--- OUTSIDE RECORDS SUMMARY | 2019-06-30 12:08 | XMS REPORT | Continuity of Care Document ---
:1935 External Reference #:[id number] Author Name Huey Butcher MD (transmitted by agent of provider Kaylie Gomez) Address [address] [place] [address] Care Team Providers Name Role Phone Chente Nobles M.D. 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 Assistant Antony Dill MD - Family Care Team Information Banjo Repair Person [phone] Medicine Problems Active Problems Provider Date Spinal [...] Quit 50 Years Ago Smoking Status Reviewed: 05/12/19 Heavy tobacco smoker 2 packs a day [...] by mouth every Unknown day Tablets Ipratropium [place] spray 2 sprays in Unknown 0.03% each nostril two Solution times daily as needed Ibuprofen 2 tablet po twice Unknown 200mg Tablets daily ( decreased since back surgery med change 1-2 wks) Immunizations Description No Information Available Vital Signs Date Vital Result Comment 05/12/2019 10:30am Height 73 inches 6'1" Weight 200.00 lb Heart Rate 81 /min BP Systolic Sitting 127 mmHg BP Diastolic Sitting 77 mmHg Respiratory Rate 16 /min Body Temperature 98.5 F Pain Level 0 BMI (Body Mass Index) 26.4 kg/m2 01/08/2019 10:40am Height 73 inches 6'1" Weight 199.00 lb with shoes Heart Rate 64 /min BP Systolic Sitting 125 mmHg Rue reg cuff BP Diastolic Sitting 70 mmHg Rue reg cuff BP Systolic Standing 120 mmHg Rue reg cuff BP Diastolic Standing 68 mmHg Rue reg cuff Respiratory Rate 15 /min BMI (Body Mass Index) 26.3 kg/m2 Results Description No Information Available Procedures Date Code Description Status 01/08/2019 56085 EKG Tracing & Interpretation Completed Medical Devices Description No Information Available Encounters Type Date Location Provider Dx Diagnosis Office Visit 01/08/2019 [facility] Kaushik Rodas 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 disease of [place] coronary artery w/o ang pctrs I10 Essential (primary) hypertension I45.10 Unspecified right bundle-branch block Assessments Date Code Description Provider 05/12/2019 M70.22 Olecranon bursitis, left elbow Huey Butcher MD 01/08/2019 I25.10 Atherosclerotic heart disease of [place] Kaushik Barrow M.D. coronary artery with 01/08/2019 I10 Essential (primary) hypertension Kaushik Barrow M.D. 01/08/2019 I45.10 Unspecified right bundle-branch block Kaushik Barrow M.D. Plan of Treatment Future Appointment(s):06/09/2019 11:00 am - Huey Butcher MD at [facility]05/12/2019 - Huey Butcher, MDM70.22 Olecranon bursitis, left elbowFollow up:Follow up: 4 weeks Functional Status Description No Information Available Mental Status Description No Information Available Referrals Description No Information Available
--- OUTSIDE RECORDS SUMMARY | 2019-06-30 12:08 | XMS REPORT | Continuity of Care Document ---
:1935 External Reference #:[id number] Author Name Yuli Dill MD Address [address] [place] [address] Care Team Providers Name Role Phone Yuli Dill MD - Family Care Team Information Government Affairs Director Medicine Problems Active Problems Provider Date Essential hypertension Yuli Dill MD Onset: 06/08/2019 Diabetes mellitus Yuli Dill MD Onset: 06/08/2019 Hypothyroidism Yuli Dill MD Onset: 06/08/2019 Pure hyperglyceridemia Yuli Dill MD Onset: 06/08/2019 Social History Type Date Description Comments Sex Unknown Tobacco Use Start: Unknown Nonsmoker ETOH Use Social Alcohol Tobacco Use Start: Unknown Nonsmoker Smoking Status Reviewed: 05/05/19 Nonsmoker Allergies, Adverse Reactions, Alerts Active Allergies Reaction Severity Comments Date Neosporin 02/23/2018 Aricept nightmares 02/01/2019 Medications Active Medications SIG Qnty Indications Ordering Date Provider Amoxicillin take four 4caps Jyotsna Whitfield, 05/25/2019 500mg capsules by mouth M.D. Capsules once prior to dental procedure Levothyroxine Sodium Take 1 Tablet 90tabs Yuli Collado 03/04/2019 Daily MD Fuentes 25mcg Tablets Levothyroxine Sodium 1 by mouth every 30tabs Yuli Collado 03/01/2019 day MD Fuentes 50mcg Tablets Metformin HCL ER Take 1 Tablet 180tabs Yuli Collado 750mg Twice A Day MD Fuentes Tablets ER 24HR Memantine HCL Take 1 Tablet 180tabs Yuli Collado 10mg Twice A Day MD Fuentes Tablets Lisinopril Take 1 Tablet 180tabs Yuli Collado 2.5mg Twice A Day MD Fuentes Tablets Metoprolol Succinate Take 1 Tablet 90tabs [facility]. ER Daily MD Fuentes 25mg Tablets ER 24HR Atorvastatin Calcium Take 1 Tablet 90tabs [facility]. Daily MD Fuentes 40mg Tablets Aspirin 1 by mouth every Unknown 81mg Tablets DR day Ipratropium [place] Use 2 Sprays In [facility] Each Nostril AT MD Fuentes 0.03% Solution Bedtime To Start, Can Use Up To Three Times A Day as Needed Ibuprofen 1 tab by mouth Unknown 600mg Tablets every 8 hours as needed pain. take with food Vitamin B12 1 by mouth every Unknown 1000mcg day Tablets ER Multivitamin Adult 1 by mouth every Unknown day Tablets History Medications Keflex 1 by mouth twice 20caps Yuli Rivas, 04/20/2019 - 500mg Capsules a day M.D. 06/09/2019 Immunizations CPT Code Status Date Vaccine Lot # [id number] Given 06/27/2018 High-Dose, Influenza Virus Vacccine-fluzone 65 and [id number] older Vital Signs Date Vital Result Comment 06/09/2019 11:58am BP Systolic 122 mmHg BP Diastolic 64 mmHg Heart Rate 60 /min Body Temperature 98.1 F Height 72 inches 6'0" Weight 195.00 lb BMI (Body Mass Index) 26.4 kg/m2 05/05/2019 9:06am BP Systolic 170 mmHg BP Diastolic 90 mmHg Heart Rate 64 /min Body Temperature 97.3 F Respiratory Rate 16 /min Height 72 inches 6'0" Weight 198.00 lb BMI (Body Mass Index) 26.9 kg/m2 Results Test Date Facility Test Result H/L Range Note Body Fluid C&S 04/28/2019 [facility] [place] Fluid Cult SEE RESULT BELOW 1 Gram Stain Body Fluid Cell 04/28/2019 [facility] [place] Body Fluid Synovial Fluid Count Source Body Fluid Appearance Bloody Body Fluid Color Red Body Fluid Volume 2 mL Body Fluid WBC 1777 /mcL Normal 2 Body Fluid RBC 608442 /mcL Body Fluid Neutrophils 27 % Body Fluid Lymph 58 % Body Fluid [place] 7 % Body Fluid Eosinophil 8 % Body Fluid Other Cells 19 Body Fluid Total Cells Counted 100 Fluid Reviewed By MD (SEE NOTE) 3 Body Fluid Total Protein 04/28/2019 [facility] [place] Total Protein, BF 4.5 g/dL 4 Fluid Source SYNOVIAL 5 Body Fluid Glucose 04/28/2019 [facility] [place] Glucose, BF 107 mg/dL 6 Fluid Source SYNOVIAL 7 Laboratory test 04/28/2019 [facility] Miscellaneous Test See Comment 8 finding Comprehensive 03/01/2019 [facility] Sodium 138 mEq/L 134-1 Metabolic Prof 49 Potassium 4.2 mEq/L 3.6-5.5 Chloride 98 mEq/L 94-112 Carbon Dioxide 26 mEq/L 21-32 Glucose 239 mg/dL High 70-105 9 BUN 28 mg/dL High 6-26 10 Creatinine 1.1 mg/dL 0.6-1.4 BUN/Creat Ratio 25.5 CALC 8.0-36.0 Calcium 9.0 mg/dL 8.6-10.2 Total Protein 6.4 g/dL 6.4-8.3 Albumin 4.5 g/dL 3.8-5.5 Globulin 1.9 g/dL Low 2.0-4.8 A/G Ratio 2.4 CALC High 0.6-2.3 Alk. Phosphatase 54 U/L 22-95 Alt (SGPT) 19 U/L 7-35 Ast (Sgot) 21 U/L 5-34 Total Bilirubin 0.5 mg/dL 0.2-1.3 GFR Non- >60 ml/min/1.73m^ >=60 GFR >60 ml/min/1.73m^ >=60 Laboratory test 03/01/2019 [facility]) TSH 7.14 mIU/L High 0.50- 6.00 11 finding LDL, Direct 65 mg/dL 0-130 Free T4 1.03 ng/dL 0.75-1.54 Laboratory test 03/01/2019 [facility] Hemoglobin A1c 6.2 % High 4.1- 5.7 finding (607)- - (a) 1 SEE RESULT BELOW Name: YULI KAMARA : [address]: JUAN A Weiss Acct: [id number] Unit: [id number] AGE: 84 Location: [facility] Re04/28/19 SEX: M Status: REG REF SPEC: [id number] MIKEL: 04/28/19-[address]: JUAN A Weiss REQ: [id number] RECD: 04/28/19 STATUS: COMP _ SOURCE: NO SOURCE SPDESC: ORDERED: BF Cult/GS, MRSA/SA SSTI Procedure Result Reported Site Body Fluid Gram Stain Final 04/28/19- 2000 ML 3+ Neutrophils No Organisms Seen Preparation By Direct Smear Body Fluid Culture Final 05/02/19- 48 ML No Growth Day 4 MRSA/S. aureus SSTI PCR Final 04/28/19- 2120 ML Organism 1 MRSA NEGATIVE Organism 2 S.AUREUS NEGATIVE * ML - Main Lab . END OF REPORT DEPARTMENT OF PATHOLOGY, [address] [place] [address] Jovani Hurtado M.D. Director [facility] # [id number] 2 -- REFERENCE VALUE -- Synovial: <150/mcL Peritoneal: <500/mcL Pleural: <500/mcL Pericardial: <500/mcL 3 Macrophages and scattered reactive synovial cells are seen. Abundant peripheral blood contamination noted. No acute inflammation seen. Reviewed by Dr. Hurtado 4 REFERENCE VALUE Not Applicable ADDITIONAL INFORMATION This test has been modified from the nuclear control room operator's instructions. Its performance characteristics were determined by [facility] in a manner consistent with CLIA requirements. This test has not been cleared or approved by the U.S. Food and Drug Administration. 5 Test Performed by: [facility] [place] [id number] 6 REFERENCE VALUE Not Applicable 7 Test Performed by: [facility] [place] [address] 8 Test Result Flag Unit RefValue Crystal ID, Synovial Fl None seen None seen Reviewed By: Tech Test Performed by: [address] [address] 9 RESULTS VERIFIED BY REPEAT ANALYSIS 10 RESULTS VERIFIED BY REPEAT ANALYSIS 11 RESULTS VERIFIED BY REPEAT ANALYSIS Procedures Date Code Description Status 02/23/2018 69273026 Colonoscopy Completed Medical Devices Description No Information Available Encounters Type Date Location Provider Dx Diagnosis Office Visit 05/05/2019 [facility] [place] M70.22 Olecranon 9:00a JUAN A bursitis, left elbow I10 Essential (primary) hypertension E03.9 Hypothyroidism, unspecified Office Visit 04/28/2019 2:30p [facility] [place] M70.22 OlecranoJUAN A Victor bursitis, left elbow Office Visit 04/20/2019 11:00a [facility] Yuli Vance M70.32 Other bursitis Wade Rivas of elbow, left elbow L03.114 Cellulitis of left upper limb Office Visit 04/15/2019 [facility] Kat Rodgers70.32 Other bursitis of 10:30a Office Yazmin, 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/PAVER elbow, left elbow Office Visit 03/01/2019 [facility] Yuli Collado E11.8 Type 2 diabetes 10:10a Office MD Fuentes mellitus with unspecified complications I10 Essential (primary) hypertension E03.9 Hypothyroidism, unspecified E78.1 Pure hyperglyceridemia E78.00 Pure hypercholesterolemia, unspecified I73.9 Peripheral vascular disease, unspecified Office Visit 02/01/2019 3:10p [facility] Yuli Collado M54.5 Low back MD Fuentes pain M25.562 Pain in left knee Assessments Date Code Description Provider 06/09/2019 I10 Essential (primary) hypertension Yuli Dill MD 06/09/2019 E03.9 Hypothyroidism, unspecified Yuli Dill MD 06/09/2019 E11.8 Type 2 diabetes mellitus with unspecified Yuli Dill MD complications 06/09/2019 E78.1 Pure hyperglyceridemia Yuli Dill MD 05/05/2019 M70.22 Olecranon bursitis, left elbow JUNA A Mata 05/05/2019 I10 Essential (primary) hypertension JUAN A Mtaa 05/05/2019 E03.9 Hypothyroidism, unspecified JUAN A Mata 04/28/2019 M70.22 Olecranon bursitis, left elbow JUAN A Mata 04/20/2019 M70.32 Other bursitis of elbow, left elbow Yuli Rivas M.D. 04/20/2019 L03.114 Cellulitis of left upper limb Yuli Rivas M.D. 04/15/2019 M70.32 Other bursitis of elbow, left elbow Kat Yazmin, [facility] 03/01/2019 E11.8 Type 2 diabetes mellitus with unspecified Yuli Dill MD complications 03/01/2019 I10 Essential (primary) hypertension Yuli Dill MD 03/01/2019 E03.9 Hypothyroidism, unspecified Yuli Dill MD 03/01/2019 E78.1 Pure hyperglyceridemia Yuli Dill MD 03/01/2019 E78.00 Pure hypercholesterolemia, unspecified Yuli Dill MD 03/01/2019 I73.9 Peripheral vascular disease, unspecified Yuli Dill MD 02/01/2019 M54.5 Low back pain Yuli Dill MD 02/01/2019 M25.562 Pain in left knee Yuli Dill MD Plan of Treatment Future Appointment(s):08/30/2019 9:00 am - Yuli Dill MD at [facility]06/09/2019 - Yuli Dill MDI10 Essential (primary) hypertensionComments:The patient will continue to monitor blood pressure in the near future, and let me know the blood pressure results if there are readings above 135/85.E03.9 Hypothyroidism, bxnkfyevbyiE58.8 Type 2 diabetes mellitus with unspecified rabsviuraoabxO59.1 Pure hyperglyceridemiaAllComments: Medication Management Patient Understands medications he's taking? Yes No Are there Barriersto Adherence? Yes No Has the patient been asked about herbal supplements and therapies, and OTC meds? Yes No Functional Status Description No Information Available Mental Status Description No Information Available Referrals Refer to Reason for Referral Status Appt Date Huey Butcher MD left elbow bursitis jw Scheduled 05/12/2019 [facility] [address] [address] [phone] [facility] evaluate and treat-low back pain Scheduled j carlos [address] [place] [facility] [id number] [phone]
--- NOTE | 2019-06-30 12:10 | ED ---
HPI Chest Pain - HPI Summary HPI Summary: 84 year [facility] by complains of persistent chest pain rated 4/10 in severity described as pressure that started yesterday late afternoon. States he fell yesterday while walking but does not remember hitting his chest. 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 Symptoms aggravated by not moving/ rest Symptoms alleviated by nothing. PMHx: hypertension, diabetes for which he takes metformin. Surgical hx: 2 stents placed in [place], [facility] w Dr. Barrow, last one placed several years ago in [facility]. No recent stress test. Does not smoke. - History of Current Complaint Chief Complaint: EDChestPainROMI Time Seen by Provider: 06/30/19 12:04 Hx Obtained From: Patient Onset/Duration: Started Days Ago - 2, Still Present Timing: Constant Current Severity: Mild Pain Intensity: 4 Pain Scale Used: 0-10 Numeric Character: Pressure/Squeezing Aggravating Factor(s): Other: - not moving Alleviating Factor(s): Nothing - Additional Pertinent History Primary Care Physician: [id number] - Allergy/Home Medications Allergies/Adverse Reactions: Allergies Allergy/AdvReac Type Severity Reaction Status Date / Time donepezil [From Aricept] Allergy Congestion Verified 01/09/19 20:21 neosporin Allergy increased Uncoded 01/09/19 20:21 swelling Home Medications: Home Medications Ibuprofen TAB* [Motrin TAB* 600 MG] 600 mg PO BID 06/30/19 [History Confirmed ] PMH/Surg Hx/FS Hx/Imm Hx Endocrine/Hematology History: Reports: Hx Diabetes - type 1, Hx Thyroid Disease - levothyroxine Cardiovascular History: Reports: Hx Hypertension, Hx Peripheral Vascular Disease - neuropathy r/t diabetes, Other Cardiovascular Problems/Disorders - 2 cardiac stents placed History: Reports: Hx Kidney Stones - none in 20 years Musculoskeletal History: Reports: Hx Arthritis, Other Musculoskeletal History - compressed disc in lower back Sensory History: Reports: Hx Contacts or Glasses - glasses, Hx Hearing Aid - bilat Opthamlomology History: Reports: Hx Contacts or Glasses - glasses Neurological History: Reports: Hx Dementia, Hx Nerve Disease - diabetic neuropathy - Cancer History Hx Chemotherapy: No - Surgical History Surgery Procedure, Year, and Place: appendectomy. tonsillectomy. left and right knee replacements. 2 cardiac stents. right rotator cuff surgery. lumbar laminectomy L4-5/L5-S1 Hx Anesthesia Reactions: No Infectious Disease History: No Infectious Disease History: Denies: Traveled Outside the [place] in Last 30 Days - Family History Known Family History: Negative: Diabetes - Social History Alcohol Use: Occasionally Substance Use Type: Reports: None Hx Tobacco Use: Yes Smoking Status (MU): Former Smoker Amount Used/How Often: smoked for less than 20 years, a very light smoker Review of Systems Negative: Fever Positive: Chest Pain All Other Systems Reviewed And Are Negative: Yes Physical Exam - Summary Physical Exam Summary: Constitutional: Well-developed, Well-nourished, Alert. (-) Distressed Skin: Warm, Dry HENT: Normocephalic; Atraumatic Eyes: Conjunctiva normal Neck: Musculoskeletal ROM normal neck. (-) JVD, (-) Stridor, (-) Nuchal rigidity Cardio: Rhythm regular, rate normal, Heart sounds normal; Intact distal pulses; Radial pulses are 2+ and symmetric. (-) Murmur Pulmonary/Chest wall: Effort normal. (-) Respiratory distress, (-) Wheezes, (-) Rales Abd: Soft, (-) tenderness, (-) Distension, (-) Guarding, (-) Rebound Musculoskeletal: (-) Edema Lymph: (-) Cervical adenopathy Neuro: Alert, Oriented x3 Psych: Mood and affect Normal Triage Information Reviewed: Yes Vital Signs On Initial Exam: Initial Vitals Temp Pulse Resp BP Pulse Ox 97.8 F 58 16 168/63 99 06/30/19 12:01 06/30/19 12:01 06/30/19 12:01 06/30/19 12:01 06/30/19 12:01 Vital Signs Reviewed: Yes Procedures - Sedation Patient Received Moderate/Deep Sedation with Procedure: No Diagnostics - Vital Signs Vital Signs Temp Pulse Resp BP Pulse Ox 06/30/19 12:01 97.8 F 58 16 168/63 99 - Laboratory Result Diagrams: 06/30/19 12:18 06/30/19 12:18 Lab Statement: Any lab studies that have been ordered have been reviewed, and results considered in the medical decision making process. - EKG 1156 Cardiac Rate: NL - 58 BPM Summary of EKG Findings: 58 BPM. T wave inversions in leads 3, aVR, aVF, V1. He has ST elevations in aVR greater than 2 mm. RBBB. No prior to compare 1210 Cardiac Rate: NL - 62 BPM Summary of EKG Findings: 62 BPM. T wave inversions in leads 3, aVR, aVF, V1. He has ST elevations in aVR greater than 2 mm. RBBB. Similar to previous done today 11:56 Re-Evaluation - Re-Evaluation First Eval Re-Evaluation Time: 12:45 Comment: trop neg x1. admit [facility] for chest pain r/o Chest Pain Course/Dx - Course Course Of Treatment: 84 y/o male w hx CAD, 2 stents prior, HTN, DM p/w central chest pressure intermittent for one day. - well appearing, NAD. Chest Pain DDX : The patient is well appearing, with stable vitals. Given the patient's clinical presentation, highest on differential is ACS vs atypical CP. Although less likely, differential also includes the following: --Pneumothorax: Equal breath sounds, story inconsistent since gradual onset of symptoms. CXR shows no evidence of pneumothorax. Unlikely. --Cardiac tamponade: The history and physical are not concerning for tamponade. No Pulsus Paradoxus, no tachypnea. Unlikely. --Mediastinitis or esophageal rupture: The history is not consistent , as the patient has had no recent history of significant wretching, instrumentation, or mediastinal surgeries. Unlikely. --Aortic dissection: The patient does not describe the classical tearing chest pain radiating into the back, and the CXR does not show mediastinal widening or other signs of aortic dissection. Unlikely. --PE: Vitals wnl (not hypoxic, tachycardic or tachypneic) . Heart score: 5 - Diagnoses Provider Diagnoses: Chest pain - Provider Notifications Discussed Care Of Patient With: Arlene Kim Time Discussed With Above Provider: 12:14 Instructed by Provider To: Other - Dr. Kim, cardiology, reviewed his EKG, states he does not meet STEMI criteria, agrees with admission for high risk cardiac. Dr. Toribio, hospitalist, agrees to admit patient 12:54. Discharge ED - Sign-Out/Discharge Documenting (check all that apply): Patient Departure - Admit - Discharge Plan Condition: Stable Disposition: ADMITTED TO [facility] Referrals: Antony Dill MD [Primary Care Provider] - - Billing Disposition and Condition Condition: STABLE Disposition: Admitted to [facility] - Attestation Statements Document Initiated by Bisiibe: Yes Documenting Scribe: Zehra Johnson Provider For Whom Francisca is Documenting (Include Credential): Margarita Townsend MD Scribe Attestation: I, Zehra Johnson, scribed for Margarita Townsend MD on 06/30/19 at 1308. Scribe Documentation Reviewed: Yes Provider Attestation: The documentation as recorded by the scribeZehra accurately reflects the service I personally performed and the decisions made by me, Margarita Townsend MD Status of Scribe Document: Viewed
[2019-06-30 12:27] LABS: ABS Eosinophils 0.3 10^3/ul (0-0.6); ABS Lymphocytes 1.1 10^3/ul (1.0-4.8); ABS Monocytes 0.7 10^3/ul (0-0.8); ABS Neutrophils 4.8 10^3/ul (1.5-7.7); Hematocrit 35 % (42-52); Hemoglobin 12.1 g/dL (14.0-18.0); Mean Corpuscular HGB Conc 35 g/dL (31-36); Mean Corpuscular Hemoglobin 34 pg (27-31); Mean Corpuscular Volume 99 fL (80-94); Mean Platelet Volume 8.6 fL (7.4-10.4); Platelet Count 175 10^3/uL (150-450); Red Blood Count 3.52 10^6 /uL (4.18-5.48); Red Cell Distribution Width 14 % (10-15); White Blood Count 6.9 10^3/uL (3.5-10.8)
[2019-06-30 12:32] LABS: INR 1.09 (0.82-1.09)
[2019-06-30] MEDS ORDERED: Aspirin 81 mg CHEW TAB* 81 MG TAB.CHEW PO ONE (12:34)
[2019-06-30 12:44] LABS: Albumin 4.1 g/dL (3.2-5.2); Albumin/Globulin Ratio 1.9 (1-3); BUN/Creatinine Ratio 25.4 (8-20); Calcium 9.2 mg/dL (8.6-10.3); EGFR African American 68.3 (>60); EGFR Non-African American 56.5 (>60); Globulin 2.2 g/dL (2-4); Potassium 4.1 mmol/L (3.5-5.0); Total Bilirubin 0.8 mg/dL (0.2-1.0); Total Protein 6.3 g/dL (6.4-8.9)
[2019-06-30 12:45] LABS: Troponin I 0.01 ng/mL (<0.04)
[2019-06-30] MEDS ORDERED: Acetaminophen TAB* 325 MG PO PRN (13:59)
[2019-06-30] MEDS ORDERED: IPRATROPIUM BR (NF)0.03% NASAL 1 SPRAY BTL BOTH NARES PRN (14:01)
[2019-06-30] MEDS ORDERED: Magnesium Sulfate IV* 3 GM in NS 0.9% 100 ML* 100 ML IVPB ONE (15:04)
[2019-06-30] MEDS ORDERED: Dextrose 50% VIAL 50 ml IV PUSH PRN (15:09)
--- NOTE | 2019-06-30 15:29 | HP ---
ADDENDUM NOW INCLUDED ON THIS REPORT CC: Dr. Dill; Dr. Barrow * HISTORY AND PHYSICAL: DATE OF ADMISSION: 06/30/19 PROVIDER: Clary Borja NP PRIMARY CARE PROVIDER: Dr. Dill. ATTENDING PHYSICIAN WHILE IN THE HOSPITAL: Dr. Keila Toribio * (dictated by Clary Borja NP). CHIEF COMPLAINT: Chest pain. HISTORY OF PRESENT ILLNESS: Mr. Montez is an 84-year-old male with a past medical history significant for type 2 diabetes; coronary artery disease, status post stent placement in 2003; BPH; hypothyroid; dementia; TIA; and hyperlipidemia, who presented to the emergency room with complaints of right- sided chest pain. The patient reports that he was stepping off the curb yesterday, lost his balance, tripping, falling, landing on the right side of his chest. He does report that since the fall he has had pain in his chest. The patient does report that since being in the emergency room, the pain is now improving and is less. He does report that the pain improves with rest. It is worse with movement, sitting up. He denies any associated radiation. He denies any nausea, vomiting, or diaphoresis associated with the chest pain. He does report that the pain feels like "a pulled muscle." The patient reports that now he only has the right-sided chest pain when trying to sit up. Due to his chest pain, Hospital Medicine was asked to see and evaluate him for admission. While in the emergency room, the patient had routine lab work. He had an EKG and received 324 mg of aspirin in the emergency room. His chest pain is currently improving, but due to his medical history of coronary artery disease and complaints of chest pain, Hospital Medicine was asked to evaluate him for admission. PAST MEDICAL HISTORY: Significant for type 2 diabetes; coronary artery disease , status post stent placement x2 in 2003; neuropathy; questionable history of congestive heart failure; BPH; arthritis; spinal stenosis; hypothyroid; history of TIA approximately 40 years ago; dementia; CHF; and hyperlipidemia. PAST SURGICAL HISTORY: 1. Appendectomy. 2. Tonsillectomy. 3. Cataract surgery. 4. Bilateral knee surgery. 5. Right rotator cuff repair. 6. Laminectomy. 7. Cardiac stent x2 in 2003 in the left circumflex and RCA. HOME MEDICATIONS: Include: 1. Metformin HCl 750 mg 1 tablet twice daily. 2. Memantine 10 mg twice daily. 3. Lisinopril 2.5 mg twice daily. 4. Levothyroxine 50 mcg p.o. daily. 5. Metoprolol 25 mg p.o. daily. 6. Atorvastatin 40 mg p.o. daily. 7. Aspirin 81 mg p.o. daily. 8. Ibuprofen 600 mg twice daily. 9. Ipratropium spray 2 to 3 sprays daily. 10. Multivitamin 1 tab p.o. daily. 11. Vitamin B12 500 mcg 1 tab p.o. daily. ALLERGIES: NEOSPORIN and ARICEPT. FAMILY HISTORY: Father with a history of congestive heart failure. No reported history of diabetes. Brother with prostate cancer. SOCIAL HISTORY: The patient quit smoking approximately 50 years ago. He does report occasional alcohol use. No illicit drug use. 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 He is . He lives with his . Surrogate decision maker in the event he is unable to make his own decisions is his or his daughter, Liberty. He is a full code. The patient does report that he walks unassisted. He walks approximately 1 mile daily. REVIEW OF SYSTEMS: He denies any fever, chills. He does complain of right- sided chest pain, worse with movement, feels like a "pulled muscle." Denies any edema, cough, hemoptysis, shortness of breath. No nausea, vomiting, diarrhea , abdominal pain, hematuria, dysuria, focal weakness, or sensory loss. Denies any visual complaints, dysphagia, arthralgias, myalgias, rashes, lesions, open sores, psychosis, or anxiety. PHYSICAL EXAMINATION GENERAL: At this time, Mr. Montez is an 84-year-old male. She is resting comfortably on the stretcher in the emergency room. He is in no acute distress. VITAL SIGNS: Blood pressure 119/65, heart rate 53, respirations 16, O2 saturation is 98% on room air, temperature was 97.8. HEENT: Head is atraumatic, normocephalic. Eyes: EOMs are intact. Sclerae anicteric and not pale. Oral mucosa appeared to be moist. NECK: Supple. LUNGS: Clear to auscultation bilaterally. No wheezes, rales, or rhonchi. Chest: He does have pain with palpation to the right side of his chest. CARDIAC: S1, S2. Regular rate and rhythm. He is bradycardic. No rubs or gallops. ABDOMEN: Soft and nontender. Bowel sounds are present x4. EXTREMITIES: He is able to move all 4 extremities. There is no clubbing or cyanosis. Post tibial pulses are +2 bilaterally. Radial pulses are +2 bilaterally. NEUROLOGIC: He is awake, alert, oriented x3. Speech is clear. Thought process is intact. There are no gross focal deficits. SKIN: Intact. DIAGNOSTIC STUDIES/LAB DATA: WBCs are 6.9, RBCs 3.52, hemoglobin 12.1, hematocrit is 35, platelet count 175. INR 1.09. Sodium 137, potassium 4.1, chloride 104, carbon dioxide was 25, anion gap was 8, BUN was 31, creatinine 1.22, glucose was 180, calcium 9.2, magnesium was 1.5. ASTs were 21, ALTs were 24, alkaline phosphatase was 52. Troponin was 0.01. Total protein was 6.3. He had an electrocardiogram, which showed sinus bradycardia with a right bundle branch block at a rate of 58. He does have T-wave inversions in V1 as well as lead III and V1 consistent with prior EKG dated 01/08/19. He had a chest x-ray, radiologist's impression: No active cardiopulmonary disease. ASSESSMENT AND PLAN: Mr. Montez is an 84-year-old male with a past medical history significant for coronary artery disease, status post stenting in 2003; type 2 diabetes; neuropathy; hypothyroid; history of transient ischemic attack; dementia, mild, who presented to the emergency room with complaints of right- sided chest pain. He will be admitted for: 1. Chest pain. We will rule out acute coronary syndrome. The patient did receive aspirin 324 mg in the emergency room. Initial troponin was 0.01. Second and third troponins are currently pending. EKG does not show any acute ST elevations. I will get a chemical nuclear stress test tomorrow. The patient does have a MELITON score of 3, scoring for age, aspirin use and past medical history. I suspect that this patient's chest pain is likely related to musculoskeletal as the patient did have a fall yesterday landing on the right side of his chest. His pain is reproducible with palpation. We will continue with ibuprofen as well for treatment of his pain. I will repeat an EKG in the morning and a lipid profile. 2. Hypomagnesemia. The patient does have a magnesium level of 1.5. I will give him 3 g of magnesium. 3. Hyperlipidemia. He should continue on atorvastatin as previously prescribed. 4. History of coronary artery disease. He will continue on aspirin. I will hold his metoprolol for a stress test tomorrow and we will continue his statin. 5. Hypothyroid. He should continue on levothyroxine 50 mcg p.o. daily. 6. Hypertension. He should continue his lisinopril. 7. Diabetes. I will place him on fingersticks a.c. with lispro sliding scale. We will hold his metformin at this time. 8. FEN: He can have a heart-healthy, no caffeine diet. 9. Code status: He is a full code. 10. DVT prophylaxis: I will place him on Lovenox subcu. TIME SPENT: Time spent on this admission was approximately 60 minutes, greater than half that time was spent at the bedside reviewing events leading thus far to his hospitalization, performing physical exam, and reviewing my plan of care. I have discussed this with my attending, Dr. Keila Toribio; she is in agreement with my plan. CLARY BORJA NP ADDENDUM: HISTORY OF PRESENT ILLNESS: The patient had most recent stress test on . He had an echo at that time. Wall thickness was moderately to severely increased. Estimated ejection fraction was 55%. Doppler parameters are consistent with abnormal LV relaxation, grade 1 diastolic dysfunction. RV cavity size is moderately increased. Aortic valve trileaflet, mildly calcified leaflets, sclerosis, no stenosis. No MS. No MR. Left atrium is mildly dilated. No TS. Trivial TR. Trivial KS. RA is mildly dilated. He had stress test. Stress test was negative for ischemia. Myocardial perfusion imaging: There is no transient ischemic dilation by visual inspection. There is a moderate-sized severe fixed defect involving the basal, mid and apical inferior and basal inferior lateral camara consistent with infarction, however, cannot totally exclude diaphragmatic attenuation artifact especially with normal wall motion in this distribution. There is no evidence of ischemia. He had a cardiac catheterization in 2003. Stents were placed in the left circumflex and RCA, both drug-eluting stents. CLARY BORJA, RAMILA [id number]/[facility] #: [id number]/CPS #: [id number] YFN
--- NOTE | 2019-06-30 15:36 | HP ---
HISTORY AND PHYSICAL: ADDENDUM: HISTORY OF PRESENT ILLNESS: The patient had most recent stress test on . He had an echo at that time. Wall thickness was moderately to severely increased. Estimated ejection fraction was 55%. Doppler parameters are consistent with abnormal LV relaxation, grade 1 diastolic dysfunction. RV cavity size is moderately increased. Aortic valve trileaflet, mildly calcified leaflets, sclerosis, no stenosis. No MS. No MR. Left atrium is mildly dilated. No TS. Trivial TR. Trivial [place]. RA is mildly dilated. He had stress test. Stress test was negative for ischemia. Myocardial perfusion imaging: There is no transient ischemic dilation by visual inspection. There is a moderate-sized severe fixed defect involving the basal, mid and apical inferior and basal inferior lateral camara consistent with infarction, however, cannot totally exclude diaphragmatic attenuation artifact especially with normal wall motion in this distribution. There is no evidence of ischemia. He had a cardiac catheterization in 2003. Stents were placed in the left circumflex and RCA, both drug-eluting stents. REANNA REYES, RAMILA [id number]/[facility] #: [id number] YFN
[2019-06-30] MEDS: Enoxaparin(*) 40 MG/0.4 ML SYR SUBCUT SCH (15:37)
[2019-06-30] MEDS: Insulin LISPRO* 1 UNITS UNIT SUBCUT SCH (16:42)
[2019-06-30] MEDS ORDERED: Cyanocobalamin TAB* 500 MCG PO SCH (18:00)
[2019-06-30] MEDS: Ibuprofen TAB* 600 MG PO SCH (21:21)
[2019-06-30] MEDS: Memantine TAB* 10 MG PO SCH (21:22)
[2019-06-30] MEDS: Lisinopril TAB* 5 MG PO SCH (21:23)
[2019-07-01 05:58] LABS: ABS Eosinophils 0.4 10^3/ul (0-0.6); ABS Lymphocytes 1.7 10^3/ul (1.0-4.8); ABS Monocytes 0.6 10^3/ul (0-0.8); Eosinophil % 5.6 %; Hematocrit 34 % (42-52); Lymphocyte % 25.4 %; Mean Corpuscular HGB Conc 35 g/dL (31-36); Mean Corpuscular Hemoglobin 35 pg (27-31); Mean Corpuscular Volume 98 fL (80-94); Mean Platelet Volume 8.6 fL (7.4-10.4); Nucleated Red Blood Cells % 0.1; Platelet Count 159 10^3/uL (150-450); Red Blood Count 3.47 10^6 /uL (4.18-5.48); Red Cell Distribution Width 14 % (10-15); White Blood Count 6.8 10^3/uL (3.5-10.8)
[2019-07-01] MEDS ORDERED: Levothyroxine TAB* 50 MCG TAB PO SCH (06:00)
[2019-07-01 06:31] LABS: Calcium 9.2 mg/dL (8.6-10.3); EGFR African American 76.2 (>60); HDL Cholesterol 57.7 mg/dL; Magnesium 1.9 mg/dL (1.9-2.7); Potassium 4.1 mmol/L (3.5-5.0)
[2019-07-01] MEDS: Insulin LISPRO* 1 UNITS UNIT SUBCUT SCH ×2 (07:41→11:30)
[2019-07-01] MEDS: Memantine TAB* 10 MG PO SCH (08:21)
[2019-07-01] MEDS: Ibuprofen TAB* 600 MG PO SCH (08:21)
[2019-07-01] MEDS: Lisinopril TAB* 5 MG PO SCH (08:21)
[2019-07-01] MEDS ORDERED: Aspirin EC TAB* 81 MG TAB.EC PO SCH (09:00)
[2019-07-01] MEDS ORDERED: Atorvastatin* 40 MG TAB PO SCH (09:00)
[2019-07-01] MEDS ORDERED: Vitamin THERAPEUTIC TAB PO SCH (09:00)
[2019-07-01] MEDS ORDERED: Regadenoson* 0.4 MG/5 ML SYRINGE ONE (12:39)
--- NOTE | 2019-07-01 13:24 | PN ---
Subjective Date of Service: 07/01/19 Interval History: HD 2 on 06/28 84 y/o M with PMH of CAD(s/p stent), T2DM, TIA, hypothyroidism, Dementia, HLD, BPH presented with right sided chest pain after fall. No acute overnight events VS stable; although rafaela Complains of pain on right lower chest- pain increased during movement and decreased with rest. No Shortness of breath, palpitation or dizziness. has abrasions on hands. NO head injury Objective Active Medications: Acetaminophen (Tylenol Tab*) 650 mg PO Q4H PRN PRN Reason: MILD PAIN or TEMP > 100.4 Aspirin (Aspirin Ec Tab*) 81 mg PO QAM [facility] Last Admin: 07/01/19 08:20 Dose: 81 mg Atorvastatin Calcium (Lipitor*) 40 mg PO QAM [facility] Last Admin: 07/01/19 08:21 Dose: 40 mg Cyanocobalamin (Vitamin B12 Tab*) 500 mcg PO QPM [facility] Last Admin: 06/30/19 17:42 Dose: 500 mcg Dextrose (Dextrose 50% Vial 50 Ml*) 25 ml IV PUSH .FOR FS < 60 - SS PRN PRN Reason: FS < 60 Enoxaparin Sodium (Lovenox(*)) 40 mg SUBCUT Q24H [facility] Last Admin: 06/30/19 15:37 Dose: 40 mg Ibuprofen (Motrin Tab*) 600 mg PO BID [facility] Last Admin: 07/01/19 08:21 Dose: 600 mg Insulin Human Lispro (Humalog*) 0 units SUBCUT AC [facility]; Protocol Last Admin: 07/01/19 11:30 Dose: Not Given Ipratropium Thorofare (Ipratropium Thorofare) 2 spray BOTH NARES .2-3 TIMES DAILY PRN PRN Reason: runny nose Levothyroxine Sodium (Synthroid Tab*) 50 mcg PO DAILY@0600 [facility] Last Admin: 07/01/19 05:29 Dose: 50 mcg Lisinopril (Prinivil Tab*) 2.5 mg PO BID [facility] Last Admin: 07/01/19 08:21 Dose: 2.5 mg Memantine (Namenda Tab*) 10 mg PO BID [facility] Last Admin: 07/01/19 08:21 Dose: 10 mg Multivitamins (Theragran Tab*) 1 tab PO DAILY [facility] Last Admin: 07/01/19 08:22 Dose: 1 tab Vital Signs - 8 hr 07/01/19 07/01/19 07/01/19 06:19 07:15 11:15 Temperature 97.3 F 97.2 F Pulse Rate 55 50 Respiratory 20 20 Rate Blood Pressure 140/72 145/82 139/62 (mmHg) O2 Sat by Pulse 99 100 Oximetry Oxygen Devices in Use Now: None Exam: Patient is lying on a bed with no acute distress. HEENT: Normocephalic and atraumatic Lungs: Clear with no added sounds Hearrt: S1/S2 heard with no murmur Abdomen:soft, nondistended and nontender. Normal BS heard Extremities: No swelling Neuro: Alert, oriented and conscious Result Diagrams: 07/01/19 05:23 07/01/19 05:23 Assess/Plan/Problems-Billing Assessment: 84 y/o M with PMH of CAD(s/p stent), T2DM, TIA, hypothyroidism, Dementia, HLD, BPH presented with right sided chest pain after fall. - Patient Problems (1) Chest pain Current Visit: Yes Status: Acute Code(s): R07.9 - CHEST PAIN, UNSPECIFIED SNOMED Code(s): 94106801 Comment: -Right sided chest pain after fall-increased on motion -It could be musculoskeletal pain as he had recent trauma and fell on his right side -Tenderness on right lower chest -No evidence of fracture on chest xray -Less likely ischemic- we will follow up stress test; if low risk dc (2) CAD (coronary artery disease) Current Visit: No Status: Acute Code(s): I25.10 - ATHSCL HEART DISEASE OF [place] CORONARY ARTERY W/O ANG PCTRS SNOMED Code(s): 83263939 Comment: -BB on hold for stress test -Continue ASA and statin (3) Diabetes Current Visit: No Status: Acute Code(s): E11.9 - TYPE 2 DIABETES MELLITUS WITHOUT COMPLICATIONS SNOMED Code(s): 81252746 Comment: -Metformin on hold; continue insulin sliding scale (4) HLD (hyperlipidemia) Current Visit: No Status: Acute Code(s): E78.5 - HYPERLIPIDEMIA, UNSPECIFIED SNOMED Code(s): 66859703 Comment: Continue statin. (5) HTN (hypertension) Current Visit: No Status: Acute Code(s): I10 - ESSENTIAL (PRIMARY) HYPERTENSION SNOMED Code(s): 77778597 Comment: -Controlled. Continue Lisinopril (6) Hypothyroidism Current Visit: Yes Status: Acute Code(s): E03.9 - HYPOTHYROIDISM, UNSPECIFIED SNOMED Code(s): 92922224 Comment: _ continue synthyroid 50 (7) Dementia Current Visit: Yes Status: Acute Code(s): F03.90 - UNSPECIFIED DEMENTIA WITHOUT BEHAVIORAL DISTURBANCE SNOMED Code(s): 18478198 Comment: -Continue Memantine (8) DVT prophylaxis Current Visit: No Status: Acute Code(s): ERI6528 - SNOMED Code(s): 152985905 Comment: -On lovenox sc (9) Full code status Current Visit: No Status: Acute Code(s): Z78.9 - OTHER SPECIFIED HEALTH STATUS SNOMED Code(s): 831683455 Status and Disposition: Observation Awaiting stress test results Attending: Tomás Eldridge Attestation Documenting Resident: Rashard Zapata Supervising Physician: Blayne Eldridge Attestation: This service has been performed in part by a resident under the direction of a teaching physician.I, Blayne Eldridge, performed the service, or was physically present during the critical, or monroy portions of the service, furnished by the resident. I participated in the management of the patient.
[2019-07-01] MEDS: Enoxaparin(*) 40 MG/0.4 ML SYR SUBCUT SCH (14:53)
[2019-07-01 15:16] VITALS: BP 144/68
[2019-07-01] MEDS ORDERED: Warfarin TAB(*) 5 MG PO SCH (17:00)
--- NOTE | 2019-07-02 09:39 | DS ---
CC: Dr. Dill, [facility].* DISCHARGE SUMMARY: DATE OF ADMISSION: 06/30/19 DATE OF DISCHARGE: 07/01/19 PRIMARY DIAGNOSIS: Noncardiac chest pain due to chest trauma in a fall. SECONDARY DIAGNOSES: 1. Stable coronary artery disease. 2. History of stent placement in 2003. 3. Type 2 diabetes. 4. Benign prostatic hyperplasia. 5. Osteoarthritis. 6. Spinal stenosis. 7. Hypothyroidism. 8. History of transient ischemic attack 4 decades ago. 9. Dementia. 10. Congestive heart failure. 11. Hyperlipidemia. MEDICATIONS ON DISCHARGE: 1. Aspirin 81 mg p.o. daily. 2. Atorvastatin 40 mg p.o. q.p.m. 3. Cyanocobalamin tablet 500 mcg p.o. q.p.m. 4. Ibuprofen 600 mg p.o. b.i.d. p.r.n. pain. 5. Ipratropium nasal spray 0.03% 2 sprays both nostrils 2 to 3 times a day as needed. 6. Levothyroxine 25 mcg p.o. b.i.d. 7. Lisinopril 2.5 mg p.o. b.i.d. 8. Memantine 10 mg p.o. b.i.d. 9. Glucophage XR 750 mg p.o. b.i.d. 10. Toprol-XL 25 mg p.o. q.a.m. 11. Multivitamin 1 tab p.o. daily. 12. Acetaminophen 650 mg p.o. q.4 hours p.r.n. HOSPITAL COURSE: Please see H and P for full details of this admission. In brief, the patient is an 84-year-old man with dementia, who had a fall when stepping off a curb and injured his chest. Initial EKG did show sinus bradycardia, right bundle- branch block, T-wave inversions in V1 as well as V3. The V1 inversions were old, but the V3 inversions are new. Initial troponin was 0.01. Chest x-ray showed no rib fractures. The patient was admitted for observation due to his being a poor historian and known coronary artery disease. His repeat troponins were all 0.01. His LDL cholesterol 69. Electrolytes were normal. Blood sugar stable at 110. He has mild anemia with hemoglobin of 12.0, which is at his baseline. On the day after admission, the patient underwent a chemical nuclear cardiac exam with low risk or ischemia. The ejection fraction was estimated at 62%. The patient was ambulatory and tolerating fluids well. His chest discomfort continued at a mild level and was treated with acetaminophen and ibuprofen. The patient is ready for discharge. DISPOSITION: To home where he lives with his . ACTIVITY: As tolerated. DIET: Low salt, low fat. STATUS: Observation. CONDITION: Stable. [id number]/[facility] #: [id number] [facility]
== END 2019-07-01 16:12 | disposition home or self-care (01) ==
LOC: ED 11:55 → MEDTELE 13:59
PROVIDERS: ADMIT Hospitalist; ATTEND Internal Medicine
DX: R07.89 Other chest pain (principal); Z91.81 History of falling; I25.10 Atherosclerotic heart disease of native coronary artery without angina pectoris; Z95.5 Presence of coronary angioplasty implant and graft; E11.9 Type 2 diabetes mellitus without complications; N40.0 Benign prostatic hyperplasia without lower urinary tract symptoms; I11.0 Hypertensive heart disease with heart failure; I50.9 Heart failure, unspecified; M48.00 Spinal stenosis, site unspecified; E03.9 Hypothyroidism, unspecified; Z86.73 Personal history of transient ischemic attack (TIA), and cerebral infarction without residual deficits; F03.90 Unspecified dementia, unspecified severity, without behavioral disturbance, psychotic disturbance, mood disturbance, and anxiety; E78.5 Hyperlipidemia, unspecified; Z79.82 Long term (current) use of aspirin; Z79.899 Other long term (current) drug therapy; Z87.891 Personal history of nicotine dependence; Z87.442 Personal history of urinary calculi; I45.10 Unspecified right bundle-branch block
CPT/HCPCS: 36415; 71045; 78452; 80048; 80053; 80061; 83735; 84484; 85025; 85610; 93005; 93017; 96365; 96366; 96372; 99283; A9270-GY; A9502; G0378; J1650; J2785; J3475

== ENCOUNTER 2023-01-30 17:27 | Inpatient (IN) ==
[2023-01-30 18:20] LABS: ABS Eosinophils 0.2 10^3/uL (0.0-0.5); ABS Lymphocytes 1.4 10^3/uL (1.0-4.8); ABS Monocytes 0.7 10^3/uL (0.0-1.1); ABS Neutrophils 4.3 10^3/uL (1.5-7.6); Eosinophil % 2.4 %; Hemoglobin 12.8 g/dL (13.2-16.3); Lymphocyte % 20.6 %; Mean Corpuscular Hemoglobin 33.7 pg (27-33); Mean Corpuscular Hgb Conc 33.8 g/dL (31-36); Mean Corpuscular Volume 99.7 fL (80-97); Mean Platelet Volume 7.6 fL (7.5-11.2); Nucleated Red Blood Cells % 0.1 /100 WBC (0.0-0.4); Platelet Count 208 10^3/uL (150-450); Red Blood Count 3.81 10^6/uL (4.06-5.63); Red Cell Distribution Width 13.9 % (12-17); White Blood Count 6.6 10^3/uL (3.6-10.2)
[2023-01-30 18:25] LABS: Urine Appearance Cloudy; Urine Bilirubin Negative (Negative); Urine Blood Negative (Negative); Urine Color Yellow; Urine Glucose Negative (Negative); Urine Ketones Negative (Negative); Urine Nitrite Negative (Negative); Urine Protein Negative (Negative); Urine Specific Gravity 1.011 (1.002-1.030); Urine Urobilinogen Negative (Negative)
[2023-01-30 18:40] LABS: Urine Bacteria 1+ (Absent); Urine Red Blood Cell Trace(0-2/hpf) (Absent); Urine White Blood Cell 3+(>20/hpf) (Absent); Urine Yeast Present (Absent)
[2023-01-30 19:08] LABS: Albumin 4.1 g/dL (3.2-5.2); Albumin/Globulin Ratio 1.6 (1-3); Calcium 9.1 mg/dL (8.6-10.3); Creatinine, Serum 1.23 mg/dL (0.67-1.17); Globulin 2.5 g/dL (2-4); Potassium 4.4 mmol/L (3.5-5.0); Total Bilirubin 0.4 mg/dL (0.2-1.0); Total Protein 6.6 g/dL (6.4-8.9); eGFR CKD-EPI 56.5 (>60)
[2023-01-30 20:21] LABS: High Sensitivity Troponin 1 Hr 7 pg/mL (<20)
[2023-01-30] MEDS ORDERED: cefTRIAXone 1 gm/50 mL D5W 1 GM/50 ML BAG IV ONE (21:17)
[2023-01-30] MEDS ORDERED: NF: IPRATROPIUM BR (NF)0.03% NASAL 1 SPRAY BTL BOTH NARES PRN (23:08)
[2023-01-30] MEDS ORDERED: Polyethylene Glycol 3350 17 GM PACKET PO PRN (23:10)
[2023-01-30] MEDS ORDERED: Senna TAB 8.6 mg TAB PO SCH (23:45)
[2023-01-30] MEDS ORDERED: Enoxaparin 40 MG/0.4 ML SYR SUBCUT SCH (23:45)
[2023-01-31] MEDS: Enoxaparin 40 MG/0.4 ML SYR SUBCUT SCH ×3 (00:55→20:56)
[2023-01-31 06:12] LABS: ABS Eosinophils 0.2 10^3/uL (0.0-0.5); ABS Lymphocytes 1.4 10^3/uL (1.0-4.8); ABS Monocytes 0.6 10^3/uL (0.0-1.1); ABS Neutrophils 4.3 10^3/uL (1.5-7.6); Eosinophil % 2.9 %; Hematocrit 35.8 % (38-53); Hemoglobin 12.5 g/dL (13.2-16.3); Lymphocyte % 21.4 %; Mean Corpuscular Hgb Conc 34.9 g/dL (31-36); Mean Corpuscular Volume 97.4 fL (80-97); Mean Platelet Volume 7.7 fL (7.5-11.2); Platelet Count 205 10^3/uL (150-450); Red Blood Count 3.67 10^6/uL (4.06-5.63); Red Cell Distribution Width 13.7 % (12-17); White Blood Count 6.4 10^3/uL (3.6-10.2)
[2023-01-31 07:08] LABS: Creatinine, Serum 1.07 mg/dL (0.67-1.17); Magnesium 1.8 mg/dL (1.9-2.7); Potassium 4.4 mmol/L (3.5-5.0); eGFR CKD-EPI 66.7 (>60)
[2023-01-31] MEDS ORDERED: Magnesium Sulfate IV 1GM/100ML 1 GM/100 ML BAG IV ONE (07:57)
[2023-01-31] MEDS: Aspirin EC 81 mg TAB.EC (enteric coated) PO SCH (11:45)
[2023-01-31] MEDS ORDERED: Magnesium Hydroxide LIQ 30 ML UDC PO PRN (12:14)
[2023-01-31] MEDS ORDERED: Polyethylene Glycol 3350 17 GM PACKET PO ONE (12:21)
[2023-01-31 17:24] LABS: TSH Ultra Thyroid Stim Horm 3.65 mcIU/mL (0.34-5.60)
[2023-01-31] MEDS: Senna TAB 8.6 mg TAB PO SCH (20:50)
[2023-01-31] MEDS: Magnesium Hydroxide LIQ 30 ML UDC PO SCH ×2 (20:51→20:56)
[2023-01-31] MEDS ORDERED: cefTRIAXone 1 gm/50 mL D5W 1 GM/50 ML BAG IV SCH (22:00)
[2023-02-01 06:18] LABS: ABS Eosinophils 0.2 10^3/uL (0.0-0.5); ABS Lymphocytes 1.4 10^3/uL (1.0-4.8); ABS Monocytes 0.8 10^3/uL (0.0-1.1); ABS Neutrophils 4.7 10^3/uL (1.5-7.6); ABS Nucleated RBC 0.01 10^3/ul; Eosinophil % 2.4 %; Hematocrit 34.5 % (38-53); Hemoglobin 12.1 g/dL (13.2-16.3); Mean Corpuscular Hemoglobin 34.4 pg (27-33); Mean Corpuscular Volume 98.2 fL (80-97); Nucleated Red Blood Cells % 0.1 /100 WBC (0.0-0.4); Platelet Count 199 10^3/uL (150-450); Red Blood Count 3.52 10^6/uL (4.06-5.63); Red Cell Distribution Width 13.7 % (12-17); White Blood Count 7.2 10^3/uL (3.6-10.2)
[2023-02-01 06:39] LABS: Calcium 9.1 mg/dL (8.6-10.3); Creatinine, Serum 1.29 mg/dL (0.67-1.17); Potassium 4.8 mmol/L (3.5-5.0); eGFR CKD-EPI 53.3 (>60)
[2023-02-01] MEDS: Aspirin EC 81 mg TAB.EC (enteric coated) PO SCH (08:29)
[2023-02-01] MEDS: Senna TAB 8.6 mg TAB PO SCH ×2 (08:29→20:44)
[2023-02-01] MEDS: Magnesium Hydroxide LIQ 30 ML UDC PO SCH ×2 (08:29→20:44)
[2023-02-01] MEDS ORDERED: Lactulose 30 ml UDC PO ONE ×2 (09:25→15:33)
[2023-02-01] MEDS ORDERED: Lactated Ringers 1000 ml BAG 500 ML IV ONE (09:30)
[2023-02-01] MEDS ORDERED: Glycerin ADULT 2.4 gm SUPP PR ONE (13:55)
[2023-02-01] MEDS ORDERED: Vancomycin per Pharmacy 1 EA NOTE FOLLOW UP PRN (16:05)
[2023-02-01] MEDS: Vancomycin 1,250 MG in NS 0.9% 250 ml 250 ML IVPB ONE ×2 (16:42→17:03)
[2023-02-01] MEDS: Enoxaparin 40 MG/0.4 ML SYR SUBCUT SCH (20:44)
[2023-02-02 08:44] LABS: Creatinine, Serum 1.09 mg/dL (0.67-1.17); Magnesium 2.2 mg/dL (1.9-2.7); Potassium 4.9 mmol/L (3.5-5.0); eGFR CKD-EPI 65.3 (>60)
[2023-02-02] MEDS: Senna TAB 8.6 mg TAB PO SCH ×3 (09:33→22:18)
[2023-02-02] MEDS: Magnesium Hydroxide LIQ 30 ML UDC PO SCH ×2 (09:33→20:10)
[2023-02-02] MEDS: Aspirin EC 81 mg TAB.EC (enteric coated) PO SCH (09:34)
[2023-02-02] MEDS ORDERED: Vancomycin 1000 MG in NS 0.9% 250 ML IVPB SCH (13:00)
[2023-02-02] MEDS: Enoxaparin 40 MG/0.4 ML SYR SUBCUT SCH ×2 (20:10→20:19)
[2023-02-02] MEDS ORDERED: Haloperidol 5 mg/ml SDV IV/IM 5 MG/ML AMP IV SLOW PU PRN (20:50)
[2023-02-03] MEDS: Senna TAB 8.6 mg TAB PO SCH ×2 (07:57→19:49)
[2023-02-03] MEDS: Aspirin EC 81 mg TAB.EC (enteric coated) PO SCH (07:57)
[2023-02-03] MEDS: Magnesium Hydroxide LIQ 30 ML UDC PO SCH ×2 (07:59→19:49)
[2023-02-03] MEDS: Enoxaparin 40 MG/0.4 ML SYR SUBCUT SCH (19:49)
[2023-02-04] MEDS: Senna TAB 8.6 mg TAB PO SCH ×2 (09:18→19:35)
[2023-02-04] MEDS: Magnesium Hydroxide LIQ 30 ML UDC PO SCH ×2 (09:19→19:35)
[2023-02-04] MEDS: Aspirin EC 81 mg TAB.EC (enteric coated) PO SCH (09:19)
[2023-02-04] MEDS ORDERED: Vancomycin Trough Check NOTE FOLLOW UP ONE (12:30)
[2023-02-04] MEDS ORDERED: Saline NASAL SPRAY 0.65% BTL BOTH NARES PRN (13:51)
[2023-02-04] MEDS ORDERED: Lactulose 30 ml UDC PO ONE (15:41)
[2023-02-04] MEDS ORDERED: Lactated Ringers 1000 ml BAG 1,000 ML IV ONE (19:14)
[2023-02-04] MEDS: Enoxaparin 40 MG/0.4 ML SYR SUBCUT SCH (19:34)
[2023-02-05 06:09] LABS: ABS Eosinophils 0.2 10^3/uL (0.0-0.5); ABS Lymphocytes 1.5 10^3/uL (1.0-4.8); ABS Monocytes 0.6 10^3/uL (0.0-1.1); ABS Neutrophils 3.7 10^3/uL (1.5-7.6); ABS Nucleated RBC 0.01 10^3/ul; Eosinophil % 3.3 %; Hematocrit 34.5 % (38-53); Hemoglobin 12.1 g/dL (13.2-16.3); Lymphocyte % 24.5 %; Mean Corpuscular Hemoglobin 34.6 pg (27-33); Mean Corpuscular Hgb Conc 34.9 g/dL (31-36); Mean Corpuscular Volume 99.1 fL (80-97); Mean Platelet Volume 7.9 fL (7.5-11.2); Nucleated Red Blood Cells % 0.1 /100 WBC (0.0-0.4); Platelet Count 197 10^3/uL (150-450); Red Blood Count 3.49 10^6/uL (4.06-5.63); Red Cell Distribution Width 13.8 % (12-17)
[2023-02-05 06:28] LABS: Calcium 8.8 mg/dL (8.6-10.3); Creatinine, Serum 1.08 mg/dL (0.67-1.17); Potassium 4.7 mmol/L (3.5-5.0)
[2023-02-05 07:55] LABS: Magnesium 2.5 mg/dL (1.9-2.7)
[2023-02-05] MEDS ORDERED: Lactulose 30 ml UDC PO ONE (07:58)
[2023-02-05] MEDS: Magnesium Hydroxide LIQ 30 ML UDC PO SCH ×2 (08:20→19:40)
[2023-02-05] MEDS: Aspirin EC 81 mg TAB.EC (enteric coated) PO SCH (08:20)
[2023-02-05] MEDS: Senna TAB 8.6 mg TAB PO SCH ×2 (08:21→19:41)
[2023-02-05] MEDS: Polyethylene Glycol 3350 17 GM PACKET PO SCH (08:21)
[2023-02-05] MEDS: Enoxaparin 40 MG/0.4 ML SYR SUBCUT SCH (19:40)
[2023-02-06] MEDS: Aspirin EC 81 mg TAB.EC (enteric coated) PO SCH (09:41)
[2023-02-06] MEDS: Magnesium Hydroxide LIQ 30 ML UDC PO SCH (09:43)
[2023-02-06] MEDS: Polyethylene Glycol 3350 17 GM PACKET PO SCH (09:44)
[2023-02-06] MEDS: Senna TAB 8.6 mg TAB PO SCH (09:44)
[2023-02-06 10:38] VITALS: BP 99/64
== END 2023-02-06 13:20 | DRG 689 ==
LOC: ED 17:27 → EDHOLD 17:27 → SUATTDRO 23:17 → EDHOLD 01-31 13:53 → MED 01-31 14:07 → SUATTDRO 02-01 11:00
PROVIDERS: ADMIT Hospitalist; ATTEND Internal Medicine

== ENCOUNTER 2023-02-09 22:54 | Inpatient (IN) ==
[2023-02-09 23:54] LABS: ABS Eosinophils 0.1 10^3/uL (0.0-0.5); ABS Monocytes 0.8 10^3/uL (0.0-1.1); ABS Neutrophils 6.6 10^3/uL (1.5-7.6); ABS Nucleated RBC 0.01 10^3/ul; Eosinophil % 0.8 %; Hematocrit 29.3 % (38-53); Hemoglobin 10.2 g/dL (13.2-16.3); Lymphocyte % 12.2 %; Mean Corpuscular Hemoglobin 34.4 pg (27-33); Mean Corpuscular Volume 98.3 fL (80-97); Mean Platelet Volume 7.6 fL (7.5-11.2); Nucleated Red Blood Cells % 0.1 /100 WBC (0.0-0.4); Platelet Count 196 10^3/uL (150-450); Red Blood Count 2.98 10^6/uL (4.06-5.63); Red Cell Distribution Width 13.6 % (12-17); White Blood Count 8.6 10^3/uL (3.6-10.2)
[2023-02-10 00:38] LABS: Albumin 3.6 g/dL (3.2-5.2); C Reactive Protein 2.29 mg/L (<8.01); Calcium 8.5 mg/dL (8.6-10.3); Creatinine, Serum 1.35 mg/dL (0.67-1.17); Globulin 1.8 g/dL (2-4); Magnesium 2.2 mg/dL (1.9-2.7); Potassium 4.5 mmol/L (3.5-5.0); Total Bilirubin 0.5 mg/dL (0.2-1.0); Total Protein 5.4 g/dL (6.4-8.9); eGFR CKD-EPI 50.5 (>60)
[2023-02-10] MEDS ORDERED: Lactated Ringers 1000 ml BAG 1,000 ML IV ONE (00:44)
[2023-02-10 01:31] LABS: Urine Appearance Clear; Urine Bilirubin Negative (Negative); Urine Blood 1+ (Negative); Urine Color Yellow; Urine Glucose Negative (Negative); Urine Ketones Negative (Negative); Urine Nitrite Negative (Negative); Urine Protein Negative (Negative); Urine Specific Gravity 1.008 (1.002-1.030); Urine Urobilinogen Negative (Negative)
[2023-02-10 01:39] LABS: Urine Bacteria Absent (Absent); Urine Red Blood Cell Trace(0-2/hpf) (Absent); Urine White Blood Cell Trace(0-5/hpf) (Absent)
[2023-02-10] MEDS ORDERED: Haloperidol 5 mg/ml SDV IV/IM 5 MG/ML AMP IV SLOW PU PRN (13:25)
[2023-02-10] MEDS ORDERED: NS 0.9% 1000 ml BAG 1,000 ML IV SCH (16:00)
[2023-02-10] MEDS: Haloperidol 5 mg/ml SDV IV/IM 5 MG/ML AMP IV SLOW PU PRN (19:28)
[2023-02-10] MEDS ORDERED: Lorazepam PYXIS KEY PRN (20:05)
[2023-02-10] MEDS ORDERED: LORazepam 2 mg VIAL 1 ml IV PUSH ONE (20:06)
[2023-02-11] MEDS ORDERED: Haloperidol 5 mg/ml SDV IV/IM 5 MG/ML AMP IM ONE (05:16)
[2023-02-11 07:01] LABS: Creatinine, Serum 1.07 mg/dL (0.67-1.17); Potassium 4.4 mmol/L (3.5-5.0)
[2023-02-11 07:02] LABS: Calcium 8.6 mg/dL (8.6-10.3); eGFR CKD-EPI 66.3 (>60)
[2023-02-11 08:14] LABS: TSH Ultra Thyroid Stim Horm 8.69 mcIU/mL (0.34-5.60)
[2023-02-11] MEDS ORDERED: Lactulose 30 ml UDC PO ONE (10:09)
[2023-02-11] MEDS ORDERED: D5W 1/2 NS 1000 ml BAG 1,000 ML IV ONE (10:16)
[2023-02-11] MEDS: Aspirin EC 81 mg TAB.EC (enteric coated) PO SCH (11:08)
[2023-02-11] MEDS: Senna TAB 8.6 mg TAB PO SCH ×2 (11:08→20:17)
[2023-02-11] MEDS: Haloperidol 5 mg/ml SDV IV/IM 5 MG/ML AMP IV SLOW PU PRN (13:04)
[2023-02-11] MEDS ORDERED: Lorazepam PYXIS KEY PRN ×3 (13:15→16:37)
[2023-02-11] MEDS ORDERED: LORazepam 2 mg VIAL 1 ml IV PUSH ONE ×3 (13:16→13:27)
[2023-02-11] MEDS ORDERED: LORazepam 2 mg VIAL 1 ml ONE (13:26)
[2023-02-11] MEDS: Levothyroxine 100 MCG/5 ML VIAL IV SCH (14:38)
[2023-02-11] MEDS: LORazepam 2 mg VIAL 1 ml IV PUSH PRN (19:53)
[2023-02-11] MEDS: Glycerin ADULT 2.4 gm SUPP PR SCH (21:06)
[2023-02-12] MEDS: Levothyroxine 100 MCG/5 ML VIAL IV SCH (05:49)
[2023-02-12] MEDS ORDERED: Levothyroxine 100 MCG/5 ML VIAL IV SCH (06:00)
[2023-02-12 06:17] LABS: ABS Eosinophils 0.2 10^3/uL (0.0-0.5); ABS Lymphocytes 1.4 10^3/uL (1.0-4.8); ABS Monocytes 0.7 10^3/uL (0.0-1.1); Eosinophil % 3.6 %; Hematocrit 32.8 % (38-53); Hemoglobin 11.6 g/dL (13.2-16.3); Lymphocyte % 21.7 %; Mean Corpuscular Hemoglobin 35.3 pg (27-33); Mean Corpuscular Hgb Conc 35.5 g/dL (31-36); Mean Corpuscular Volume 99.5 fL (80-97); Mean Platelet Volume 7.6 fL (7.5-11.2); Platelet Count 210 10^3/uL (150-450); Red Cell Distribution Width 13.4 % (12-17); White Blood Count 6.4 10^3/uL (3.6-10.2)
[2023-02-12 06:41] LABS: Albumin 3.6 g/dL (3.2-5.2); Albumin/Globulin Ratio 1.8 (1-3); Calcium 8.9 mg/dL (8.6-10.3); Creatinine, Serum 0.96 mg/dL (0.67-1.17); Magnesium 1.8 mg/dL (1.9-2.7); Potassium 4.3 mmol/L (3.5-5.0); Total Bilirubin 0.5 mg/dL (0.2-1.0); Total Protein 5.6 g/dL (6.4-8.9); eGFR CKD-EPI 75.6 (>60)
[2023-02-12] MEDS ORDERED: Magnesium Sulfate 2 gm BAG 2 GM/50 ML BAG IVPB ONE (08:25)
[2023-02-12] MEDS ORDERED: Lactulose 30 ml UDC PO ONE (08:26)
[2023-02-12] MEDS: Aspirin EC 81 mg TAB.EC (enteric coated) PO SCH (08:49)
[2023-02-12] MEDS: Senna TAB 8.6 mg TAB PO SCH ×2 (08:49→20:04)
[2023-02-12] MEDS: Lactulose 30 ml UDC PO SCH ×2 (12:01→18:21)
[2023-02-12] MEDS: Glycerin ADULT 2.4 gm SUPP PR SCH (12:02)
[2023-02-13 05:40] LABS: ABS Basophils 0.1 10^3/uL (0.0-0.1); ABS Eosinophils 0.2 10^3/uL (0.0-0.5); ABS Lymphocytes 1.1 10^3/uL (1.0-4.8); ABS Monocytes 0.9 10^3/uL (0.0-1.1); ABS Neutrophils 10.2 10^3/uL (1.5-7.6); Eosinophil % 1.5 %; Hematocrit 33.3 % (38-53); Hemoglobin 11.5 g/dL (13.2-16.3); Lymphocyte % 8.6 %; Mean Corpuscular Hgb Conc 34.6 g/dL (31-36); Mean Corpuscular Volume 98.2 fL (80-97); Mean Platelet Volume 7.8 fL (7.5-11.2); Platelet Count 224 10^3/uL (150-450); Red Cell Distribution Width 13.8 % (12-17); White Blood Count 12.4 10^3/uL (3.6-10.2)
[2023-02-13] MEDS: Levothyroxine 100 MCG/5 ML VIAL IV SCH (05:59)
[2023-02-13 06:18] LABS: Calcium 8.9 mg/dL (8.6-10.3); Creatinine, Serum 1.01 mg/dL (0.67-1.17); Potassium 4.2 mmol/L (3.5-5.0); eGFR CKD-EPI 71.1 (>60)
[2023-02-13] MEDS: Glycerin ADULT 2.4 gm SUPP PR SCH (09:59)
[2023-02-13] MEDS: Senna TAB 8.6 mg TAB PO SCH ×2 (09:59→20:38)
[2023-02-13] MEDS: Aspirin EC 81 mg TAB.EC (enteric coated) PO SCH (10:00)
[2023-02-13] MEDS ORDERED: Lactated Ringers 1000 ml BAG 1,000 ML IV ONE (16:27)
[2023-02-13] MEDS: Magnesium Hydroxide LIQ 30 ML UDC PO SCH (20:38)
[2023-02-14] MEDS: Aspirin EC 81 mg TAB.EC (enteric coated) PO SCH (09:51)
[2023-02-14] MEDS: Magnesium Hydroxide LIQ 30 ML UDC PO SCH ×2 (09:51→20:17)
[2023-02-14] MEDS: Senna TAB 8.6 mg TAB PO SCH ×2 (09:51→20:17)
[2023-02-14] MEDS: Glycerin ADULT 2.4 gm SUPP PR SCH (09:52)
[2023-02-15] MEDS: Magnesium Hydroxide LIQ 30 ML UDC PO SCH ×2 (09:53→20:09)
[2023-02-15] MEDS: Aspirin EC 81 mg TAB.EC (enteric coated) PO SCH (09:53)
[2023-02-15] MEDS: Senna TAB 8.6 mg TAB PO SCH ×2 (09:53→20:10)
[2023-02-15] MEDS: Glycerin ADULT 2.4 gm SUPP PR SCH ×2 (10:05→10:23)
[2023-02-15] MEDS: Polyethylene Glycol 3350 17 GM PACKET PO PRN (10:05)
[2023-02-15] MEDS ORDERED: NS 0.9% 1000 ml BAG 1,000 ML IV ONE (15:03)
[2023-02-16] MEDS: Aspirin EC 81 mg TAB.EC (enteric coated) PO SCH (10:13)
[2023-02-16] MEDS: Senna TAB 8.6 mg TAB PO SCH ×2 (10:13→19:19)
[2023-02-16] MEDS: Magnesium Hydroxide LIQ 30 ML UDC PO SCH ×2 (10:14→19:20)
[2023-02-16] MEDS: Glycerin ADULT 2.4 gm SUPP PR SCH (10:14)
[2023-02-17] MEDS: LORazepam 2 mg VIAL 1 ml IV PUSH PRN (04:30)
[2023-02-17] MEDS: Aspirin EC 81 mg TAB.EC (enteric coated) PO SCH (08:59)
[2023-02-17] MEDS: Senna TAB 8.6 mg TAB PO SCH ×2 (09:00→20:06)
[2023-02-17] MEDS: Polyethylene Glycol 3350 17 GM PACKET PO PRN (10:40)
[2023-02-17] MEDS: Glycerin ADULT 2.4 gm SUPP PR SCH ×2 (14:53→15:42)
[2023-02-17] MEDS: Magnesium Hydroxide LIQ 30 ML UDC PO PRN (20:07)
[2023-02-18] MEDS: Senna TAB 8.6 mg TAB PO SCH ×2 (10:30→20:04)
[2023-02-18] MEDS: Aspirin EC 81 mg TAB.EC (enteric coated) PO SCH (10:30)
[2023-02-18] MEDS: Glycerin ADULT 2.4 gm SUPP PR SCH (13:46)
[2023-02-18 14:39] LABS: Hematocrit 31.5 % (38-53); Hemoglobin 10.8 g/dL (13.2-16.3); Mean Corpuscular Hemoglobin 34.4 pg (27-33); Mean Corpuscular Hgb Conc 34.5 g/dL (31-36); Mean Corpuscular Volume 99.8 fL (80-97); Mean Platelet Volume 7.5 fL (7.5-11.2); Platelet Count 243 10^3/uL (150-450); Red Blood Count 3.15 10^6/uL (4.06-5.63); Red Cell Distribution Width 13.7 % (12-17); White Blood Count 17.2 10^3/uL (3.6-10.2)
[2023-02-18 14:53] LABS: Calcium 8.4 mg/dL (8.6-10.3); Potassium 4.3 mmol/L (3.5-5.0)
[2023-02-18 14:59] LABS: Creatinine, Serum 1.11 mg/dL (0.67-1.17); eGFR CKD-EPI 63.5 (>60)
[2023-02-18] MEDS: Magnesium Hydroxide LIQ 30 ML UDC PO PRN (20:04)
[2023-02-19] MEDS: Magnesium Hydroxide LIQ 30 ML UDC PO PRN (05:18)
[2023-02-19] MEDS: Amoxicillin/Clavul 875/125 TAB (Augmentin 875 tab) PO SCH ×2 (11:07→22:06)
[2023-02-19] MEDS: Senna TAB 8.6 mg TAB PO SCH ×2 (11:07→22:07)
[2023-02-19] MEDS: Aspirin EC 81 mg TAB.EC (enteric coated) PO SCH (11:07)
[2023-02-19] MEDS: Glycerin ADULT 2.4 gm SUPP PR SCH (11:08)
[2023-02-20] MEDS: Senna TAB 8.6 mg TAB PO SCH ×2 (09:31→20:25)
[2023-02-20] MEDS: Aspirin EC 81 mg TAB.EC (enteric coated) PO SCH (09:31)
[2023-02-20] MEDS: Amoxicillin/Clavul 875/125 TAB (Augmentin 875 tab) PO SCH ×2 (09:31→20:24)
[2023-02-20] MEDS: Glycerin ADULT 2.4 gm SUPP PR SCH (09:32)
[2023-02-21] MEDS ORDERED: Droperidol 5 MG/2 ML 2 ML VIAL IV ONE (01:21)
[2023-02-21 07:36] LABS: Hematocrit 31.7 % (38-53); Hemoglobin 11.1 g/dL (13.2-16.3); Mean Corpuscular Hemoglobin 34.7 pg (27-33); Mean Corpuscular Hgb Conc 34.9 g/dL (31-36); Mean Corpuscular Volume 99.4 fL (80-97); Platelet Count 307 10^3/uL (150-450); Red Blood Count 3.19 10^6/uL (4.06-5.63); Red Cell Distribution Width 13.5 % (12-17); White Blood Count 9.1 10^3/uL (3.6-10.2)
[2023-02-21 08:01] LABS: Creatinine, Serum 1.13 mg/dL (0.67-1.17); Potassium 3.9 mmol/L (3.5-5.0); eGFR CKD-EPI 62.1 (>60)
[2023-02-21] MEDS: Aspirin EC 81 mg TAB.EC (enteric coated) PO SCH (08:40)
[2023-02-21] MEDS: Senna TAB 8.6 mg TAB PO SCH ×2 (08:40→19:51)
[2023-02-21] MEDS: Amoxicillin/Clavul 875/125 TAB (Augmentin 875 tab) PO SCH ×2 (08:42→19:51)
[2023-02-21] MEDS: Glycerin ADULT 2.4 gm SUPP PR SCH (14:36)
[2023-02-22] MEDS: Senna TAB 8.6 mg TAB PO SCH ×2 (08:42→20:04)
[2023-02-22] MEDS: Aspirin EC 81 mg TAB.EC (enteric coated) PO SCH (08:42)
[2023-02-22] MEDS: Glycerin ADULT 2.4 gm SUPP PR SCH (08:43)
[2023-02-22] MEDS: Amoxicillin/Clavul 875/125 TAB (Augmentin 875 tab) PO SCH ×2 (08:44→20:04)
[2023-02-23] MEDS: Amoxicillin/Clavul 875/125 TAB (Augmentin 875 tab) PO SCH ×2 (09:33→20:52)
[2023-02-23] MEDS: Glycerin ADULT 2.4 gm SUPP PR SCH (09:33)
[2023-02-23] MEDS: Aspirin EC 81 mg TAB.EC (enteric coated) PO SCH (09:33)
[2023-02-23] MEDS: Senna TAB 8.6 mg TAB PO SCH ×2 (09:33→20:54)
[2023-02-24 05:50] LABS: Rapid COVID-19 Molecular Undetected (Undetected)
[2023-02-24] MEDS: Senna TAB 8.6 mg TAB PO SCH ×2 (09:15→21:18)
[2023-02-24] MEDS: Aspirin EC 81 mg TAB.EC (enteric coated) PO SCH (09:15)
[2023-02-24] MEDS: Amoxicillin/Clavul 875/125 TAB (Augmentin 875 tab) PO SCH (09:15)
[2023-02-24] MEDS: Glycerin ADULT 2.4 gm SUPP PR SCH (09:15)
[2023-02-25] MEDS: Aspirin EC 81 mg TAB.EC (enteric coated) PO SCH (10:01)
[2023-02-25] MEDS: Senna TAB 8.6 mg TAB PO SCH ×2 (10:02→21:17)
[2023-02-25] MEDS: Glycerin ADULT 2.4 gm SUPP PR SCH (11:40)
[2023-02-25] MEDS ORDERED: Droperidol 5 MG/2 ML 2 ML VIAL IV PRN (23:21)
[2023-02-26] MEDS: Aspirin EC 81 mg TAB.EC (enteric coated) PO SCH (08:31)
[2023-02-26] MEDS: Senna TAB 8.6 mg TAB PO SCH ×2 (08:31→19:29)
[2023-02-26] MEDS: Glycerin ADULT 2.4 gm SUPP PR SCH (09:46)
[2023-02-27] MEDS ORDERED: Droperidol 5 MG/2 ML 2 ML VIAL IV ONE (00:27)
[2023-02-27] MEDS: Aspirin EC 81 mg TAB.EC (enteric coated) PO SCH (09:49)
[2023-02-27] MEDS: Senna TAB 8.6 mg TAB PO SCH ×2 (09:49→20:10)
[2023-02-27] MEDS: Glycerin ADULT 2.4 gm SUPP PR SCH (10:21)
[2023-02-28] MEDS: Senna TAB 8.6 mg TAB PO SCH ×2 (08:41→20:59)
[2023-02-28] MEDS: Aspirin EC 81 mg TAB.EC (enteric coated) PO SCH (08:42)
[2023-02-28] MEDS: Glycerin ADULT 2.4 gm SUPP PR SCH (08:43)
[2023-03-01] MEDS: Aspirin EC 81 mg TAB.EC (enteric coated) PO SCH (09:14)
[2023-03-01] MEDS: Senna TAB 8.6 mg TAB PO SCH ×2 (09:14→20:13)
[2023-03-01] MEDS: Glycerin ADULT 2.4 gm SUPP PR SCH (09:15)
[2023-03-01] MEDS ORDERED: PPD test dose 5 TU/0.1 ML TEST (*USE PPD ORDER SET*) INTRADERM SCH (12:30)
[2023-03-01] MEDS: Lidocaine PATCH 5% PATCH TRANSDERM SCH (13:54)
[2023-03-01] MEDS ORDERED: PPD test dose 5 TU/0.1 ML TEST (*USE PPD ORDER SET*) INTRADERM ONE (14:45)
[2023-03-02] MEDS: Aspirin EC 81 mg TAB.EC (enteric coated) PO SCH (07:44)
[2023-03-02] MEDS: Polyethylene Glycol 3350 17 GM PACKET PO PRN (07:44)
[2023-03-02] MEDS: Senna TAB 8.6 mg TAB PO SCH ×2 (07:44→20:09)
[2023-03-02] MEDS: Lidocaine PATCH 5% PATCH TRANSDERM SCH (07:45)
[2023-03-02] MEDS: Glycerin ADULT 2.4 gm SUPP PR SCH (07:45)
[2023-03-03] MEDS: Lidocaine PATCH 5% PATCH TRANSDERM SCH (07:54)
[2023-03-03] MEDS: Aspirin EC 81 mg TAB.EC (enteric coated) PO SCH (07:55)
[2023-03-03] MEDS: Senna TAB 8.6 mg TAB PO SCH ×2 (07:55→20:25)
[2023-03-03] MEDS ORDERED: PPD Reading NOTE 1 EA MISC ONE (12:30)
[2023-03-04] MEDS: Senna TAB 8.6 mg TAB PO SCH ×2 (09:37→20:34)
[2023-03-04] MEDS: Aspirin EC 81 mg TAB.EC (enteric coated) PO SCH (09:38)
[2023-03-04] MEDS: Lidocaine PATCH 5% PATCH TRANSDERM SCH (09:41)
[2023-03-05] MEDS: Senna TAB 8.6 mg TAB PO SCH ×2 (09:48→20:26)
[2023-03-05] MEDS: Aspirin EC 81 mg TAB.EC (enteric coated) PO SCH (09:48)
[2023-03-05] MEDS: Lidocaine PATCH 5% PATCH TRANSDERM SCH (09:48)
[2023-03-06] MEDS: Senna TAB 8.6 mg TAB PO SCH ×2 (08:52→20:16)
[2023-03-06] MEDS: Aspirin EC 81 mg TAB.EC (enteric coated) PO SCH (08:52)
[2023-03-06] MEDS: Lidocaine PATCH 5% PATCH TRANSDERM SCH (08:53)
[2023-03-07 07:11] LABS: TSH Ultra Thyroid Stim Horm 4.43 mcIU/mL (0.34-5.60)
[2023-03-07 07:13] LABS: Free T4 1.2 ng/dL (0.61-1.12)
[2023-03-07] MEDS: Aspirin EC 81 mg TAB.EC (enteric coated) PO SCH (08:33)
[2023-03-07] MEDS: Senna TAB 8.6 mg TAB PO SCH ×2 (08:33→21:20)
[2023-03-07] MEDS: Lidocaine PATCH 5% PATCH TRANSDERM SCH (08:34)
[2023-03-07] MEDS: Polyethylene Glycol 3350 17 GM PACKET PO PRN (09:03)
[2023-03-08 08:16] LABS: ABS Basophils 0.1 10^3/uL (0.0-0.1); ABS Eosinophils 0.2 10^3/uL (0.0-0.5); ABS Monocytes 1.1 10^3/uL (0.0-1.1); Hematocrit 31.3 % (38-53); Hemoglobin 10.9 g/dL (13.2-16.3); Mean Corpuscular Hemoglobin 34.1 pg (27-33); Mean Corpuscular Hgb Conc 34.8 g/dL (31-36); Mean Platelet Volume 7.3 fL (7.5-11.2); Platelet Count 290 10^3/uL (150-450); Red Cell Distribution Width 13.6 % (12-17); White Blood Count 8.3 10^3/uL (3.6-10.2)
[2023-03-08 08:17] LABS: Eosinophil % 2.7 %; Lymphocyte % 11.6 %
[2023-03-08] MEDS: Lidocaine PATCH 5% PATCH TRANSDERM SCH (08:22)
[2023-03-08] MEDS: Polyethylene Glycol 3350 17 GM PACKET PO PRN (08:22)
[2023-03-08] MEDS: Senna TAB 8.6 mg TAB PO SCH ×2 (08:22→21:57)
[2023-03-08] MEDS: Aspirin EC 81 mg TAB.EC (enteric coated) PO SCH (08:22)
[2023-03-08 08:32] LABS: Calcium 8.8 mg/dL (8.6-10.3); Creatinine, Serum 0.94 mg/dL (0.67-1.17); Potassium 4.1 mmol/L (3.5-5.0); eGFR CKD-EPI 77.5 (>60)
[2023-03-08] MEDS: Magnesium Hydroxide LIQ 30 ML UDC PO PRN (22:08)
[2023-03-09] MEDS: Polyethylene Glycol 3350 17 GM PACKET PO PRN (10:43)
[2023-03-09] MEDS: Magnesium Hydroxide LIQ 30 ML UDC PO PRN (10:43)
[2023-03-09] MEDS: Lidocaine PATCH 5% PATCH TRANSDERM SCH (10:43)
[2023-03-09] MEDS: Senna TAB 8.6 mg TAB PO SCH ×2 (10:44→21:03)
[2023-03-09] MEDS: Aspirin EC 81 mg TAB.EC (enteric coated) PO SCH (10:44)
[2023-03-09] MEDS ORDERED: Enoxaparin 40 MG/0.4 ML SYR SUBCUT SCH (17:00)
[2023-03-10] MEDS: Polyethylene Glycol 3350 17 GM PACKET PO PRN (07:55)
[2023-03-10] MEDS: Magnesium Hydroxide LIQ 30 ML UDC PO PRN (07:57)
[2023-03-10] MEDS: Lidocaine PATCH 5% PATCH TRANSDERM SCH (07:58)
[2023-03-10] MEDS: Aspirin EC 81 mg TAB.EC (enteric coated) PO SCH (08:00)
[2023-03-10] MEDS: Senna TAB 8.6 mg TAB PO SCH ×2 (08:00→21:34)
[2023-03-10] MEDS: Enoxaparin 40 MG/0.4 ML SYR SUBCUT SCH (21:34)
[2023-03-11] MEDS: Senna TAB 8.6 mg TAB PO SCH ×2 (08:24→21:18)
[2023-03-11] MEDS: Aspirin EC 81 mg TAB.EC (enteric coated) PO SCH (08:24)
[2023-03-11] MEDS: Lidocaine PATCH 5% PATCH TRANSDERM SCH (08:24)
[2023-03-11] MEDS: Enoxaparin 40 MG/0.4 ML SYR SUBCUT SCH (21:19)
[2023-03-12 06:19] VITALS: BP 162/74
[2023-03-12] MEDS: Aspirin EC 81 mg TAB.EC (enteric coated) PO SCH (09:30)
[2023-03-12] MEDS: Senna TAB 8.6 mg TAB PO SCH (09:30)
[2023-03-12] MEDS: Lidocaine PATCH 5% PATCH TRANSDERM SCH (09:36)
== END 2023-03-12 10:35 | DRG 56 ==
LOC: ED 22:54 → EDHOLD 22:54 → SUATTDRO 02-10 13:19 → MED 02-10 14:45 → SUATTDRO 02-11 16:02
PROVIDERS: ADMIT Internal Medicine; ATTEND Student in an Organized Health Care Education/Training Program

== ENCOUNTER 2023-04-15 14:01 | Inpatient (IN) ==
[2023-04-15 15:15] LABS: ABS Lymphocytes 0.6 10^3/uL (1.0-4.8); ABS Monocytes 0.9 10^3/uL (0.0-1.1); ABS Neutrophils 14.9 10^3/uL (1.5-7.6); ABS Nucleated RBC 0.02 10^3/ul; Hematocrit 36.3 % (38-53); Lymphocyte % 3.4 %; Mean Corpuscular Hemoglobin 32.7 pg (27-33); Mean Corpuscular Volume 99.2 fL (80-97); Mean Platelet Volume 9.2 fL (7.5-11.2); Nucleated Red Blood Cells % 0.1 /100 WBC (0.0-0.4); Platelet Count 335 10^3/uL (150-450); Red Blood Count 3.65 10^6/uL (4.06-5.63); Red Cell Distribution Width 14.6 % (12-17); White Blood Count 16.4 10^3/uL (3.6-10.2)
[2023-04-15 15:38] LABS: INR 1.36 (0.88-1.18)
[2023-04-15 15:50] LABS: TSH Ultra Thyroid Stim Horm 4.41 mcIU/mL (0.34-5.60)
[2023-04-15 16:11] LABS: Albumin 3.4 g/dL (3.2-5.2); Calcium 9.2 mg/dL (8.6-10.3); Creatinine, Serum 1.89 mg/dL (0.67-1.17); Globulin 3.4 g/dL (2-4); Magnesium 2.2 mg/dL (1.9-2.7); Potassium 4.7 mmol/L (3.5-5.0); Total Bilirubin 0.7 mg/dL (0.2-1.0); Total Protein 6.8 g/dL (6.4-8.9); eGFR CKD-EPI 33.5 (>60)
[2023-04-15] MEDS ORDERED: cefTRIAXone 1 gm/50 mL D5W 1 GM/50 ML BAG IV ONE (16:14)
[2023-04-15] MEDS ORDERED: Azithromycin 500 mg/250 ml NS 500 MG/250 ML BAG IVPB ONE (16:14)
[2023-04-15 16:18] LABS: High Sensitivity Troponin 1 Hr 36 pg/mL (<20)
[2023-04-15] MEDS: Lactated Ringers 1000 ml BAG 1,000 ML IV SCH ×2 (16:21→17:45)
[2023-04-15 18:51] LABS: PCO2 Arterial 35 mmHg (35-45)
[2023-04-15 18:53] LABS: PO2 Arterial 43 mmHg (80-100)
[2023-04-15] MEDS ORDERED: Lactated Ringers 1000 ml BAG 1,000 ML IV SCH (19:00)
[2023-04-15] MEDS ORDERED: Dextrose 50% Syringe 50 ml 25 GM/50 ML SYRINGE IV PUSH PRN (19:53)
[2023-04-15] MEDS ORDERED: Enoxaparin 30 MG/0.3 ML SYR SUBCUT SCH (20:00)
[2023-04-15 20:01] LABS: PCO2 Arterial 32 mmHg (35-45); PO2 Arterial 79 mmHg (80-100)
[2023-04-15] MEDS: Senna TAB 8.6 mg TAB PO SCH (22:32)
[2023-04-16] MEDS ORDERED: LORazepam 2 mg VIAL 1 ml IV PUSH ONE (01:14)
[2023-04-16] MEDS ORDERED: Lorazepam PYXIS KEY PRN (01:14)
[2023-04-16] MEDS: Acetaminophen IV 1 GM/100ML 1,000 MG/100 ML BAG IV PRN ×2 (01:27→09:12)
[2023-04-16 01:33] LABS: Urine Appearance Clear; Urine Bilirubin Negative (Negative); Urine Blood Negative (Negative); Urine Color Yellow; Urine Glucose Negative (Negative); Urine Ketones Trace (Negative); Urine Nitrite Negative (Negative); Urine Protein Negative (Negative); Urine Specific Gravity 1.018 (1.002-1.030); Urine Urobilinogen Negative (Negative)
[2023-04-16 01:41] LABS: Urine Bacteria Absent (Absent); Urine Red Blood Cell Trace(0-2/hpf) (Absent); Urine Squamous Epithelial Cell Present (Absent); Urine White Blood Cell 2+(11-20/hpf) (Absent)
[2023-04-16 02:13] LABS: ABS Lymphocytes 0.5 10^3/uL (1.0-4.8); ABS Monocytes 0.6 10^3/uL (0.0-1.1); ABS Neutrophils 9.7 10^3/uL (1.5-7.6); ABS Nucleated RBC 0.01 10^3/ul; Hematocrit 29.3 % (38-53); Hemoglobin 10.2 g/dL (13.2-16.3); Lymphocyte % 4.7 %; Mean Corpuscular Hemoglobin 34.3 pg (27-33); Mean Corpuscular Hgb Conc 34.7 g/dL (31-36); Mean Corpuscular Volume 98.9 fL (80-97); Mean Platelet Volume 9.5 fL (7.5-11.2); Nucleated Red Blood Cells % 0.1 /100 WBC (0.0-0.4); Platelet Count 242 10^3/uL (150-450); Red Blood Count 2.96 10^6/uL (4.06-5.63); Red Cell Distribution Width 14.5 % (12-17); White Blood Count 10.8 10^3/uL (3.6-10.2)
[2023-04-16 02:14] LABS: PCO2 Arterial 29 mmHg (35-45); PO2 Arterial 98 mmHg (80-100)
[2023-04-16 02:31] LABS: Albumin 2.7 g/dL (3.2-5.2); Calcium 8.3 mg/dL (8.6-10.3); Creatinine, Serum 1.8 mg/dL (0.67-1.17); Globulin 2.8 g/dL (2-4); Potassium 4.1 mmol/L (3.5-5.0); Total Bilirubin 0.5 mg/dL (0.2-1.0); Total Protein 5.5 g/dL (6.4-8.9); eGFR CKD-EPI 35.5 (>60)
[2023-04-16] MEDS ORDERED: Vancomycin 1,250 MG in NS 0.9% 250 ml 250 ML IVPB ONE (02:49)
[2023-04-16] MEDS ORDERED: Lactated Ringers 1000 ml BAG 1,000 ML IV ONE ×3 (03:02→12:49)
[2023-04-16] MEDS ORDERED: Norepinephrine 16MCG/ML BAGD5W 4,000 MCG/250 ML BAG IV ONE (03:31)
[2023-04-16] MEDS ORDERED: Vancomycin per Pharmacy 1 EA NOTE FOLLOW UP PRN (03:42)
[2023-04-16] MEDS ORDERED: Norepinephrine 16MCG/ML BAGD5W 4,000 MCG/250 ML BAG IV SCH (04:00)
[2023-04-16] MEDS ORDERED: Cefepime ADVAN 1 GM in NS 0.9% 50 ML 50 ML IVPB SCH (04:00)
[2023-04-16] MEDS ORDERED: Norepinephrine 16MCG/ML BAG NS 4,000 MCG/250 ML BAG IV SCH (04:00)
[2023-04-16] MEDS ORDERED: Phenylephrine DRIP 0.2 MG/ML in NS 0.9% 250 ML (PHA mix) IV SCH (04:25)
[2023-04-16 04:36] LABS: ABS Lymphocytes 0.7 10^3/uL (1.0-4.8); ABS Monocytes 0.8 10^3/uL (0.0-1.1); ABS Neutrophils 10.5 10^3/uL (1.5-7.6); Hematocrit 30.2 % (38-53); Hemoglobin 10.2 g/dL (13.2-16.3); Lymphocyte % 6.1 %; Mean Corpuscular Hemoglobin 33.4 pg (27-33); Mean Corpuscular Hgb Conc 33.7 g/dL (31-36); Mean Corpuscular Volume 99.2 fL (80-97); Mean Platelet Volume 8.9 fL (7.5-11.2); Platelet Count 265 10^3/uL (150-450); Red Blood Count 3.05 10^6/uL (4.06-5.63); Red Cell Distribution Width 14.6 % (12-17); White Blood Count 12.1 10^3/uL (3.6-10.2)
[2023-04-16] MEDS: Cefepime 1 GM in Dextrose 1 GM/50 ML BAG IV SCH ×2 (04:37→16:11)
[2023-04-16 04:51] LABS: Calcium 7.8 mg/dL (8.6-10.3); Creatinine, Serum 1.72 mg/dL (0.67-1.17); Magnesium 1.9 mg/dL (1.9-2.7); Potassium 3.9 mmol/L (3.5-5.0); eGFR CKD-EPI 37.5 (>60)
[2023-04-16] MEDS ORDERED: Enoxaparin 40 MG/0.4 ML SYR SUBCUT ONE (05:00)
[2023-04-16] MEDS ORDERED: PHENYLEPHRINE DRIP IVPREMIX 50 MG/250 ML BAG IV SCH (05:00)
[2023-04-16] MEDS: Levothyroxine 100 MCG/5 ML VIAL IV SCH (05:35)
[2023-04-16] MEDS ORDERED: Lactated Ringers 1000 ml BAG 1,000 ML IV SCH ×2 (06:00→09:30)
[2023-04-16] MEDS ORDERED: Magnesium Sulfate IV 1GM/100ML 1 GM/100 ML BAG IV ONE (08:45)
[2023-04-16] MEDS: Aspirin EC 81 mg TAB.EC (enteric coated) PO SCH (10:02)
[2023-04-16] MEDS: Senna TAB 8.6 mg TAB PO SCH ×2 (10:03→19:44)
[2023-04-16 14:29] LABS: Calcium 7.7 mg/dL (8.6-10.3); Creatinine, Serum 1.35 mg/dL (0.67-1.17); Potassium 3.4 mmol/L (3.5-5.0); eGFR CKD-EPI 50.2 (>60)
[2023-04-16] MEDS ORDERED: cefTRIAXone 1 gm/50 mL D5W 1 GM/50 ML BAG IV SCH (16:00)
[2023-04-16] MEDS ORDERED: Azithromycin 500 mg/250 ml NS 500 MG/250 ML BAG IVPB SCH (16:00)
[2023-04-16] MEDS ORDERED: Morphine 2 MG/ML SYRINGE IV PRN (16:41)
[2023-04-16] MEDS: Enoxaparin 80 MG/0.8 ML SYR SUBCUT SCH (17:50)
[2023-04-16] MEDS ORDERED: Vancomycin 1000 MG in NS 0.9% 250 ML IVPB SCH (22:00)
[2023-04-17] MEDS: Acetaminophen IV 1 GM/100ML 1,000 MG/100 ML BAG IV PRN (02:16)
[2023-04-17 04:10] LABS: ABS Lymphocytes 0.6 10^3/uL (1.0-4.8); ABS Monocytes 0.5 10^3/uL (0.0-1.1); ABS Neutrophils 8.2 10^3/uL (1.5-7.6); Hematocrit 25.2 % (38-53); Hemoglobin 8.9 g/dL (13.2-16.3); Lymphocyte % 6.3 %; Mean Corpuscular Hemoglobin 34.4 pg (27-33); Mean Corpuscular Hgb Conc 35.2 g/dL (31-36); Mean Corpuscular Volume 97.8 fL (80-97); Mean Platelet Volume 9.4 fL (7.5-11.2); Platelet Count 210 10^3/uL (150-450); Red Blood Count 2.58 10^6/uL (4.06-5.63); Red Cell Distribution Width 14.3 % (12-17); White Blood Count 9.4 10^3/uL (3.6-10.2)
[2023-04-17] MEDS: Cefepime 1 GM in Dextrose 1 GM/50 ML BAG IV SCH (04:15)
[2023-04-17 04:25] LABS: Creatinine, Serum 1.13 mg/dL (0.67-1.17); Potassium 3.3 mmol/L (3.5-5.0); eGFR CKD-EPI 62.1 (>60)
[2023-04-17] MEDS ORDERED: KCL 20 MEQ/100 ML IVPREMIX 20 MEQ/100 ML BAG IV ONE (04:52)
[2023-04-17] MEDS ORDERED: KCL 20 MEQ/100 ML IVPREMIX 20 MEQ/100 ML BAG ONE (05:08)
[2023-04-17] MEDS: Enoxaparin 80 MG/0.8 ML SYR SUBCUT SCH (05:12)
[2023-04-17] MEDS: Levothyroxine 100 MCG/5 ML VIAL IV SCH (05:13)
[2023-04-17] MEDS: Aspirin EC 81 mg TAB.EC (enteric coated) PO SCH (07:41)
[2023-04-17] MEDS: Senna TAB 8.6 mg TAB PO SCH ×2 (07:41→19:55)
[2023-04-17] MEDS ORDERED: Morphine ORAL CONCENTRATE 5 MG/0.25 ML ORAL.SYRIN SL PRN (07:46)
[2023-04-17] MEDS ORDERED: Morphine 2 MG/ML SYRINGE IV PRN (07:50)
[2023-04-17] MEDS: Morphine ORAL CONCENTRATE 5 MG/0.25 ML ORAL.SYRIN SL SCH ×2 (17:01→22:44)
[2023-04-17 19:19] VITALS: BP 154/65
[2023-04-18] MEDS: Morphine ORAL CONCENTRATE 5 MG/0.25 ML ORAL.SYRIN SL PRN ×3 (01:06→15:01)
[2023-04-18] MEDS ORDERED: Scopolamine 1 mg/72hr PATCH TRANSDERM ONE (03:19)
[2023-04-18] MEDS: Morphine ORAL CONCENTRATE 5 MG/0.25 ML ORAL.SYRIN SL SCH ×5 (05:11→19:59)
[2023-04-18] MEDS: Levothyroxine 100 MCG/5 ML VIAL IV SCH (06:04)
[2023-04-18] MEDS: Senna TAB 8.6 mg TAB PO SCH ×2 (07:38→20:01)
[2023-04-18] MEDS ORDERED: Morphine ORAL CONCENTRATE 5 MG/0.25 ML ORAL.SYRIN SL SCH (17:00)
[2023-04-18] MEDS ORDERED: Atropine 1% (ORAL/SL) 15 ML BTL SL PRN (20:37)
[2023-04-18] MEDS ORDERED: Vancomycin Trough Check NOTE FOLLOW UP ONE (21:30)
[2023-04-19] MEDS: Morphine ORAL CONCENTRATE 5 MG/0.25 ML ORAL.SYRIN SL SCH ×7 (01:20→20:42)
[2023-04-19] MEDS: Senna TAB 8.6 mg TAB PO SCH ×2 (09:09→21:23)
[2023-04-19] MEDS: Morphine ORAL CONCENTRATE 5 MG/0.25 ML ORAL.SYRIN SL PRN ×4 (11:24→21:41)
[2023-04-19] MEDS ORDERED: Morphine ORAL CONCENTRATE 5 MG/0.25 ML ORAL.SYRIN SL PRN (22:35)
[2023-04-19] MEDS ORDERED: Morphine ORAL CONCENTRATE 5 MG/0.25 ML ORAL.SYRIN SL SCH (23:00)
== END 2023-04-19 23:50 | disposition expired | DRG 871 ==
LOC: EDHOLD 14:01 → ED 14:01 → SUATTDRO 18:22 → MED 21:36 → ICU 04-16 03:00 → SUATTDRO 04-16 03:00 → ICU 04-16 03:16 → MED 04-17 18:53
PROVIDERS: ADMIT Internal Medicine; ATTEND Hospitalist